=== PATIENT | female | born 1980 | race Caucasian/White ===

== ENCOUNTER 2019-06-21 11:53 | Inpatient (IN) ==
[2019-06-21] MEDS ORDERED: *HR* OxyCODONE/APAP 5/325 TABLET PO ONE (12:20)
[2019-06-21] MEDS ORDERED: Ondansetron ODT 4 MG TAB.RAPDIS SL ONE (12:20)
[2019-06-21] MEDS ORDERED: 0.9 % Sodium Chloride 1,000 ML IVC ONE (12:22)
--- NOTE | 2019-06-21 12:27 | Emergency Department Note ---
Disposition Clinical Impression: Pyelonephritis, Nephrolithiasis Disposition: Admitted As Inpatient Condition: Good Time of Disposition: 15:30 General Adult HPI - General Chief complaint: ED Abdominal Pain Stated complaint: Kidney stones right side Time Seen by Provider: 06/21/19 12:03 Source: patient Mode of arrival: private vehicle Limitations: no limitations Nursing Notes Reviewed: Yes Vital Signs Reviewed: Yes - History of Present Illness HPI Narrative: 39-year-old female with a past medical history of thyroid disorder for which she takes Synthroid, and a one-month history of urinary frequency and dysuria intermittently, and then had some sudden onset right-sided flank pain that started at 10:30 today. Patient also reports severe nausea and vomiting since that started. Patient reports she has history of kidney stones and has never required operative management of these kidney stones. She has always been able to pass her stones on her own. She does not know if she has any hematuria. Pain Scale: 10 - Related Data Home Medications Medication Instructions Recorded Confirmed Levothyroxine [Synthroid] 150 mcg PO 0630 12/05/15 06/21/19 Fluticasone Propionate Nasal 2 spray NS AD 12/14/15 06/21/19 [Flonase] Allopurinol [Zyloprim 100 MG] 100 mg PO DAILY 06/21/19 06/21/19 Montelukast [Singulair] 10 mg PO HS 06/21/19 06/21/19 Sertraline [Zoloft] 25 mg PO DAILY 06/21/19 06/21/19 Allergies Allergy/AdvReac Type Severity Reaction Status Date / Time cephalexin [From Keflex] Allergy See Verified 02/14/18 12:36 Comments Sulfa (Sulfonamide Allergy Hives Verified 02/14/18 12:36 Antibiotics) Review of Systems: In addition to that documented in the HPI above, the additional ROS was obtained: Constitutional: Denies fevers or chills Eyes: Denies vision changes ENMT: Denies sore throat CV: Denies chest pain Resp: Denies SOB GI: Reports nausea, vomiting, suprapubic abdominal pain : Reports dysuria, urinary frequency MSK: Denies recent trauma Skin: Denies new rashes Neuro: Denies new numbness or tingling or weakness Endocrine: Denies unexpected weight loss Heme: Denies bleeding disorders Past Medical History - Past Medical History Medical history: Reports: DVT, hyperlipidemia, kidney stones, migraine, pulmonary embolus, other Surgical history: Reports: (x2), cholecystectomy, herniorrhaphy (x2), other (uterine ablation, tubal ligation, left carpal tunnel release, bronchoscopy, sinus surgery, open ventral hernia repair) Psychiatric history: Reports: anxiety INFORMATION SYSTEMS SECURITY DEVELOPER history: Reports: no INFORMATION SYSTEMS SECURITY DEVELOPER history, other - Social History Smoking Status: Former smoker Smokeless Tobacco Status: No Alcohol use: Reports: none Drug use: Reports: none Physical Exam General: A&O x 3. No acute distress. Appears very uncomfortable. Well developed, well nourished. Head: atraumatic, normocephalic. ENT: No conjunctival injection, no scleral icterus. PERRLA. EOMI. Oropharynx non- erythematous. mucous membranes moist. Neuro: No focal deficits, no speech deficit, no facial droop, mentating well. BUE/BLE Str 5/5. Pulm: Lungs CTAB A/P. No wheezes, rales, ronchi. Cardio: RRR no m/r/g. Chest not tender to palpation. Abd: Soft, non-distended. Normoactive bowel sounds. Tender to palpation in suprapubic area. Voluntary guarding. Non rigid. Back: Right CVA tenderness Extremities: Radial pulses 2+ leti, dorsalis pedis/posterior tibialis 2+ leti. No LE edema. No cyanosis, clubbing. Skin: warm, dry, intact. No rashes. Psych: Appropriate mood and affect. Answers questions appropriately. Cooperative with exam. - General Limitations: no limitations Course Vital Signs Temperature 97.5 F L 06/21/19 11:58 Pulse Rate 74 06/21/19 11:58 Respiratory Rate 18 06/21/19 11:58 Blood Pressure 157/92 06/21/19 11:58 O2 Sat by Pulse Oximetry 94 06/21/19 11:58 Temperature 97.5 F L 06/21/19 12:11 Pulse Rate 101 06/21/19 15:03 Respiratory Rate 18 06/21/19 15:03 Blood Pressure 124/64 06/21/19 15:03 O2 Sat by Pulse Oximetry 94 06/21/19 15:03 Oxygen Delivery Oxygen Delivery Room Air Medical Decision Making - [facility] Narrative Medical decision making narrative: 39F with hx of previous kidney stones that presents with sx of kidney stone that started at 1030 this am. Sharp pain that starts at right flank, also dysuria and frequency for the last month. Will obtain UA with reflex culture and CT of Abd/Pelvis. UA showed infection and CT showed obstructing 2mm stone in her right UPJ. My attending, Dr. Carmen, spoke with the urologist philosophy and religion instructor Dr. Raines who recommended admission with IV antibiotics. Pt was admitted to the hospitalist, Dr. Felix, who agreed to accept the pt to his service. Results of the workup including any imaging and/or labwork was shared with the patient at bedside. Patient was given an opportunity to ask questions at bedside and all of their concerns were addressed. Patient verbalized understanding and agreement with plan of care. Pt remained stable while in the department. - Medical Records Medical records reviewed: Yes I reviewed the patient's medical records. - Lab Data Lab results reviewed: Yes I reviewed the patient's lab results. Lab Results 06/21/19 06/21/19 Range/Units 12:10 12:10 Urine Color Yellow (Yellow) Urine Clarity Slightly Hazy (Clear) Urine pH 5.0 (5.0-8.0) pH Units Ur Specific Frostproof 1.024 (1.010-1.025) Urine Protein Negative (Neg-Trace) mg/dL Urine Glucose (UA) Normal (Normal) mg/dL Urine Ketones Negative (Negative) mg/dL Urine Blood Small H (Negative) Urine Nitrite Negative (Negative) Urine Bilirubin Negative (Negative) Urine Urobilinogen Normal (Normal) mg/dL Ur Leukocyte Esterase Moderate H (Negative) Urine Microscopic RBC 5-15 H (0-3) per hpf Urine Microscopic WBC TNTC H (0-3) per hpf Ur Squamous Epith Cells Many H (None-Few) per lpf Urine Bacteria Many H (None-Few) per hpf Hyaline Casts None Seen (None-Few) per lpf Ur Culture Indicated? YES A (NO) Urine Test Negative (Negative) - Radiology Data Radiology results reviewed: Yes I reviewed the patient's radiology results. Abdomen/Pelvis CT 06/21/19 12:21 IMPRESSION: 1. Obstructive right ureterovesical junction calculus measures 2 mm. [id number] upstream hydroureteronephrosis. 2. Colonic diverticulosis without acute inflammatory changes. 3. Normal appendix. D/ / 06/21/2019 13:15:54 Erlinda Blas MD / kj Interpreting Provider: Erlinda Blas MD Attestation Statement - Attestation Attestation: I, Roderick Carmen, examined this patient and my medical decision-making was reviewed with the MAIN LINE STATION ENGINEER/PA/Advanced Practice Nurse/Resident Physician. I agree with the documented findings, disposition and treatment plan as described except to the extent set forth below. 39-year-old female presents emergency Department with concerns of flank pain. Patient reports she has had right flank pain over the past few weeks associated with dysuria however she thought it would just improve without intervention. She started coming much more sick this morning and now has an acute worsening of her symptoms. Patient is unable to sit still emergency department, she has right CVA tenderness on exam. Urinalysis shows urinary tract infection. CT of the abdomen and pelvis shows an obstructing right ureterolithiasis. Patient was updated regarding CT and laboratory results. She will be started on antibiotics and admitted to the hospitalist for further care and evaluation. We spoke with the urologist regarding the patient's infection in conjunction with stone who agreed to see her in the morning.
[2019-06-21 12:44] LABS: Bilirubin,Urine Negative (Negative); Blood,Urine Small (Negative); Color,Urine Yellow (Yellow); Glucose,Urine (UA) Normal (Normal); Ketones,Urine Negative (Negative); Leukocyte Esterase,Urine Moderate (Negative); Nitrite,Urine Negative (Negative); Protein,Urine Negative (Neg-Trace); Specific Gravity,Urine 1.024 (1.010-1.025); Urobilinogen,Urine Normal (Normal)
[2019-06-21 12:46] LABS: Bacteria,Urine Many per hpf (None-Few); Hyaline Casts,Urine None Seen per lpf (None-Few); Squamous Epithelial Cell,Urine Many per lpf (None-Few); WBC,Urine TNTC per hpf (0-3)
[2019-06-21 12:47] LABS: Clarity,Urine Slightly Hazy (Clear)
[2019-06-21] MEDS ORDERED: cefTRIAXone 1,000 MG in Water for inj. (sterile) 10 ML IVP ONE (13:02)
[2019-06-21] MEDS ORDERED: *HR* FentaNYL (PF) 100 MCG/2 ML VIAL IVP ONE ×2 (13:14→14:23)
[2019-06-21] MEDS ORDERED: *HR* Promethazine 25 MG/ML VIAL IVP ONE (14:23)
[2019-06-21] MEDS ORDERED: *HR* OxyCODONE Immed Rel 5 MG TABLET PO PRN (15:07)
[2019-06-21] MEDS ORDERED: Acetaminophen 325 MG TABLET PO PRN (15:07)
[2019-06-21] MEDS ORDERED: *HR* Promethazine 25 MG/ML VIAL IVP PRN (15:07)
[2019-06-21] MEDS ORDERED: Mag Hydrox/Al Hydrox/Simeth 30 ML UDC PO PRN (15:07)
[2019-06-21] MEDS ORDERED: Naloxone 0.4 MG/ML INJ IVP PRN ×2 (15:07→15:10)
[2019-06-21] MEDS ORDERED: *HR* HYDROcodone/Acet 5/325 mg TABLET PO PRN (15:07)
[2019-06-21] MEDS ORDERED: MOM Conc 10 ML UD.LIQ PO PRN (15:07)
[2019-06-21] MEDS ORDERED: traMADol 50 MG TABLET PO PRN (15:07)
[2019-06-21] MEDS ORDERED: *HR* Belladonna Alkaloids/Opium 30 MG RECTAL SUPPOSITORY RC PRN (15:10)
[2019-06-21] MEDS ORDERED: Hyoscyamine SL 0.125 MG TAB.SUBL SL PRN (15:10)
[2019-06-21] MEDS ORDERED: Fluticasone Propionate Nasal 50 MCG/SPRAY BOTTLE NS SCH (15:15)
--- NOTE | 2019-06-21 15:18 | Internal Med History&Physical ---
Date of Encounter: 06/21/19 Time of Encounter: 14:30 Internal Medicine - H&P: HPI Chief complaint: back pain Admitted From: Emergency Dept Plans for Post Hospital Care: Home History of present illness: Ms. Cardenas is a 39 year old female with hx of PE in 2016 presented to ED with back pain. She was evaluated and found to have obstructive uropathy and subsequently placed in observation. Ms. Cardenas stated that she has had about a month of dysuria and urinary frequency. Denies fever or chills. No CP or SOB. This AM about 1030 developed sudden R side flank pain. She had associated N/V which has persisted though now she has mostly dry heaves. She has had previous kidney stones but never has needed intervention. At the present time she is very uncomfortable. She is unable to find a comfortable position and is having urinary dribbling. CT scan has shown obstructive R UVJ calculus measuring 2mm with mild-mod upstream hydroureteronephrosis. UA consistent with UTI. Past Med Surg Social Fam HX - Past Medical History Medical history: DVT, hyperlipidemia, kidney stones, migraine, pulmonary embolus, other Psychiatric history: anxiety - Past Surgical History Surgical History: (x2), cholecystectomy, herniorrhaphy (x2), other (uterine ablation, tubal ligation, left carpal tunnel release, bronchoscopy, sinus surgery, open ventral hernia repair) Additional surgical history: ventral hernia repair - Social History Smoking Status: Former smoker Smokeless Tobacco Status: No Alcohol use: none Drug use: none - Additional Family History Additional family history: Pt denies significant family history of cardiac disease, DM or HTN. Internal Medicine - H&P: Meds Levothyroxine [Synthroid] 150 mcg PO 0630 12/05/15 [History] Montelukast Sodium [Singulair] 4 mg PO HS 12/05/15 [History] Fluticasone Propionate Nasal [Flonase] 2 spray NS AD 12/14/15 [History] Zoloft 25 mg PO DAILY 06/21/19 [History] Allergy/AdvReac Type Severity Reaction Status Date / Time cephalexin [From Keflex] Allergy See Verified 02/14/18 12:36 Comments Sulfa (Sulfonamide Allergy Hives Verified 02/14/18 12:36 Antibiotics) All Systems PM: A 10-system review of systems was performed and is negative for pertinent findings except as documented above in the HPI. - Constitutional Constitutional: fatigue, malaise - EENT Eyes: no blurry vision, no loss of vision Ears: no decreased hearing Nose, mouth and throat: no dry mouth, no mouth pain - Cardiovascular Cardiovascular ROS IM: no chest pain, no dyspnea, no dyspnea on exertion - Respiratory Respiratory: no cough, no hemoptysis, no dyspnea on exertion - Gastrointestinal Gastrointestinal: abdominal pain, nausea, no diarrhea - Genitourinary Genitourinary: difficulty urinating, difficulty voiding, dysuria, flank pain, urinary frequency, urinary hesitancy, urinary urgency - Musculoskeletal Musculoskeletal ROS IM: no arthralgias, no joint swelling - Integumentary Integumentary IM: no erythema, no rash - Neurological Neurological ROS: no convulsions, no numbness - Endocrine Endocrine IM: no cold intolerance - Hematologic/Lymphatic Hematologic/Lymphatic: no easy bleeding - Constitutional Vitals: Temp Pulse Resp BP Pulse Ox 97.5 F L 101 18 124/64 94 06/21/19 12:11 06/21/19 15:03 06/21/19 15:03 06/21/19 15:03 06/21/19 15:03 General appearance: Present: A&O X 3, severe distress Exam: See below - Head Head exam: Present: atraumatic, normocephalic - Eye Eye exam: Present: EOMI, conjuntiva pink - ENT ENT exam: Present: mucous membranes dry - Neck Neck exam general surgery: Present: normal inspection, supple. Absent: nuchal rigidity - Respiratory Respiratory exam: Present: CTAB. Absent: rales, rhonchi, wheezes - Cardiovascular Cardiovascular exam: Present: RRR, tachycardia - GI/Abdominal GI/Abdominal exam: Present: soft, tenderness (flank R) - Extremities Exam Extremities exam: Present: warm. Absent: tenderness - Neurological Exam Neurological exam: Present: alert, oriented X3 - Skin Skin exam: Present: dry, warm. Absent: rash Internal Med - H&P Results - Labs Labs: Urine 06/21/19 Range/Units 12:10 Urine Color Yellow (Yellow) Urine Clarity Slightly Hazy (Clear) Urine pH 5.0 (5.0-8.0) pH Units Ur Specific Maxwell 1.024 (1.010-1.025) Urine Protein Negative (Neg-Trace) mg/dL Urine Glucose (UA) Normal (Normal) mg/dL - Impressions ITS Impressions Abdomen/Pelvis CT 06/21/19 12:21 IMPRESSION: 1. Obstructive right ureterovesical junction calculus measures 2 mm. [id number] upstream hydroureteronephrosis. 2. Colonic diverticulosis without acute inflammatory changes. 3. Normal appendix. D/ / 06/21/2019 13:15:54 Erlinda Blas MD / kj Interpreting Provider: Erlinda Blas MD - Assessment and Plan (1) Urolithiasis Current Visit: Yes Status: Acute Assessment and plan: Pt with stones at R UVJ. Presented with flank pain Place in observation. IV fluids and pain control. Urology consult Qualifiers: Urinary calculus location: ureter Qualified Code(s): N20.1 - Calculus of ureter (2) Acute unilateral obstructive uropathy Current Visit: Yes Status: Acute Assessment and plan: Pt presented with acute R flank pain and found to have stone at UVJ and obstruction. Observation. Pain control. IV fluids. Urology consult. NPO midnight. (3) UTI (urinary tract infection) Current Visit: Yes Status: Acute Assessment and plan: Pt presents with acute obstructive uropathy with symptoms of UTI. Urine with pyuria and hematuria as well as bacteria. IV Rocephin given. Qualifiers: Urinary tract infection type: acute cystitis Hematuria presence: with hematuria Qualified Code(s): N30.01 - Acute cystitis with hematuria (4) Hypothyroidism Current Visit: No Status: Chronic Assessment and plan: Continue home thyroid replacement. Qualifiers: Hypothyroidism type: acquired Qualified Code(s): E03.9 - Hypothyroidism, unspecified (5) BASIL on CPAP Current Visit: No Status: Chronic Assessment and plan: Respiratory consult (6) Morbid obesity with BMI of 50.0-59.9, adult Current Visit: Yes Status: Chronic Assessment and plan: Chronic issue (7) Seasonal allergies Current Visit: No Status: Chronic Assessment and plan: Continue home meds. Qualifiers: Allergic rhinitis trigger: unspecified Qualified Code(s): J30.2 - Other seasonal allergic rhinitis - Time Spent With Patient Total time spent is greater than 50% in coordination of care (as documented) at patient's floor/unit and/or counseling patient:
--- NOTE | 2019-06-21 19:24 | Urology - Consult Note ---
Date of Encounter: 06/21/19 Time of Encounter: 19:22 - Assessment and Plan (1) Right ureteral stone Current Visit: Yes Status: Acute Assessment and plan: We will plan on conservative management with medical motion therapy today. If patient fails to pass her stone will take the patient to the operative room tomorrow for right ureteroscopic stone extraction. (2) Acute cystitis without hematuria Current Visit: Yes Status: Acute Assessment and plan: Continue with broad-spectrum antimicrobial coverage until cultures return. Patient currently on Rocephin. (3) Nausea without vomiting Current Visit: Yes Status: Acute Assessment and plan: Continue current medication. Appears controlled at this time. (4) Hydronephrosis, right Current Visit: Yes Status: Acute Assessment and plan: Mild to moderate with obstruction from right ureteral stone. Expectation of improvement with either spontaneous passage of stone or removal tomorrow. Urology CN:HPI Consult date: 06/21/19 Reason for consult Urology: Hydronephrosis Requesting physician: Wili Amezquita History of present illness: Olivia is a 39-year-old female with a past medical history significant for kidney stones. Patient states that she has passed multiple stones in the past but has never required any intervention. Patient presented to the emergency department today with severe right-sided flank pain. Subjective fevers at home. Positive nausea without vomiting. Urinalysis concerning for possible infection but negative nitrites. Patient CT scan revealed a 2 mm right UVJ stone with mild to moderate right proximal hydronephrosis.. Patient states her pain is currently a 8 out of 10 sharp in nature located in her right flank with radiation to her right groin. Past Med Surg Social Fam HX - Past Medical History Medical history: DVT, hyperlipidemia, kidney stones, migraine, pulmonary embolus, other Psychiatric history: anxiety - Past Surgical History Surgical History: (x2), cholecystectomy, herniorrhaphy (x2), other (uterine ablation, tubal ligation, left carpal tunnel release, bronchoscopy, sinus surgery, open ventral hernia repair) Additional surgical history: ventral hernia repair - Social History Smoking Status: Former smoker Smokeless Tobacco Status: No Alcohol use: none Drug use: none - Family History Mother Name: Patient denies any history of kidney stones in her family Medications and Allergies Levothyroxine [Synthroid] 150 mcg PO 0630 12/05/15 [History] Fluticasone Propionate Nasal [Flonase] 2 spray NS AD 12/14/15 [History] Allopurinol [Zyloprim 100 MG] 100 mg PO DAILY 06/21/19 [History] Montelukast [Singulair] 10 mg PO HS 06/21/19 [History] Sertraline [Zoloft] 25 mg PO DAILY 06/21/19 [History] Allergy/AdvReac Type Severity Reaction Status Date / Time cephalexin [From Keflex] Allergy See Verified 02/14/18 12:36 Comments Sulfa (Sulfonamide Allergy Hives Verified 02/14/18 12:36 Antibiotics) Review of Systems - Constitutional no chills - EENT Nose, mouth and throat: no dizziness - Cardiovascular no chest pain, no dyspnea - Respiratory no cough, no dyspnea - Gastrointestinal nausea, no abdominal pain, no vomiting - Genitourinary Genitourinary: dysuria - Musculoskeletal back pain - Integumentary no rash, no swelling - Neurological no sensory deficit - Psychiatric no depression - Hematologic/Lymphatic no lymphadenopathy - Allergic/Immunologic no wheezing Exam Initial Vital Signs Temp Pulse Resp BP Pulse Ox 97.5 F L 74 18 157/92 94 06/21/19 11:58 06/21/19 11:58 06/21/19 11:58 06/21/19 11:58 06/21/19 11:58 General/Neuological: alert and oriented x 3 Eyes: normal pupils, non-icteric Neck: no lymphadenopathy noted, supple to touch Cardiovascular: RRR, no murmurs Respiratory: normal respiratory effort, clear bilaterally ABD: soft, nontender, no masses palpated, good bowel sounds, severely morbidly obese Back: no pain on percussion bilaterally Skin: no rashes noted Musculoskeletal: normal gait, FROMx4 Urology Results - Labs Abnormal lab results Urine Blood Small (Negative) H 06/21/19 12:10 Ur Leukocyte Esterase Moderate (Negative) H 06/21/19 12:10 Urine Microscopic RBC 5-15 per hpf (0-3) H 06/21/19 12:10 Urine Microscopic WBC TNTC per hpf (0-3) H 06/21/19 12:10 Ur Squamous Epith Cells Many per lpf (None-Few) H 06/21/19 12:10 Urine Bacteria Many per hpf (None-Few) H 06/21/19 12:10 Ur Culture Indicated? YES (NO) A 06/21/19 12:10 All other labs normal. - Imaging CT scan - abdomen: image reviewed CT scan - pelvis: image reviewed Consult Discharge Plan - Plan Referrals: Ector Vera CNP [Primary Care Provider] -
[2019-06-21] MEDS: Ketorolac 30 MG/ML VIAL IVP SCH (20:00)
[2019-06-21] MEDS: Ringers Solution, Lactated 1,000 ML IVC SCH (21:56)
[2019-06-22] MEDS: Ketorolac 30 MG/ML VIAL IVP SCH ×4 (00:18→17:35)
[2019-06-22] MEDS: Ringers Solution, Lactated 1,000 ML IVC SCH (04:29)
[2019-06-22] MEDS ORDERED: Famotidine 20 MG/2 ML VIAL IVP ONE (07:42)
--- NOTE | 2019-06-22 08:04 | Internal Med Progress Note ---
<Modesto Alegre - Last Filed: 06/22/19 12:44> Hospitalist Progress Note - Encounter Date of Encounter: 06/22/19 Time of Encounter: 08:03 - Subjective Interval History: Pt is comfortable, pain well controlled. Urinated once post procedure w/o evidence of blood. Still has some dysuria, although she reports that it has improved considerably since stent placement. Denies fever, chills, n/v, cp, sob. - Exam Vitals: Temp Pulse Resp BP Pulse Ox 98.9 F 87 16 120/74 94 06/22/19 04:21 06/22/19 04:21 06/22/19 04:21 06/22/19 04:21 06/22/19 04:21 Exam: GA: A&O X 3, no acute pain Head: atraumatic, normocephalic Eye: EOMI, conjuntiva normal ENT: mucous membranes moist Neck: normal inspection, no thyromegaly Respiratory: CTAB. No rales, rhonchi, wheezes CV: RRR, S1/S2 WNL, no murmurs, rubs or gallops GI: Soft, BS normal, mild suprapubic tenderness Ext: warm. No edema, pulses symmetric bilaterally Neuro: CN grossly intact, no focal deficits Skin: dry, warm. No rash - Assessment and Plan (1) Acute unilateral obstructive uropathy Current Visit: Yes Status: Acute Assessment and Plan: Pt s/p ureteroscopic stone extraction w/right stent placement for obstructive uropathy w/o complication. Following with urology. - Continue to monitor for dysuria, hematuria, fever. - Conitnue Rocephin IV. - [place], toradol for pain. - Phenergan for nausea. (2) Urolithiasis Current Visit: Yes Status: Acute Assessment and Plan: S/P stone extraction with stent placement. Pain and dysuria improved. - Continue toradol, norco for pain. - Phenergan for nausea. - Urology following. (3) Hydronephrosis, right Current Visit: Yes Status: Acute Assessment and Plan: No surgical complications per urology. Pain improved. - Monitor for progressive pain, signs of infection. - Continue pain management. - Phergan for nausea. - Uro following. (4) Acute cystitis without hematuria Current Visit: Yes Status: Acute Assessment and Plan: Dysuria improved s/p ureteral stent w/stone extraction. Mild burning w/urination today. Anticipate d/c tomorrow. - Continue IV rocephin. (5) Morbid obesity with BMI of 50.0-59.9, adult Current Visit: Yes Status: Chronic Assessment and Plan: Chronic obesity, pt to f/u with pcp at discharge. (6) BASIL on CPAP Current Visit: No Status: Chronic Assessment and Plan: RT consulted. Possible CPAP tonight. (7) Seasonal allergies Current Visit: No Status: Chronic Assessment and Plan: Continue singulair as prescribed. - Time Spent with Patient Total time spent is greater than 50% in coordination of care (as documented) at patient's floor/unit and/or counseling patient: Plan of Care Discussed with: patient Internal Medicine: Result - Labs CBC & Chem 7: 06/22/19 04:00 06/22/19 04:00 Labs: Urine 06/21/19 Range/Units 12:10 Urine Color Yellow (Yellow) Urine Clarity Slightly Hazy (Clear) Urine pH 5.0 (5.0-8.0) pH Units Ur Specific [place] 1.024 (1.010-1.025) Urine Protein Negative (Neg-Trace) mg/dL Urine Glucose (UA) Normal (Normal) mg/dL - Impressions Impressions Abdomen/Pelvis CT 06/21/19 12:21 IMPRESSION: 1. Obstructive right ureterovesical junction calculus measures 2 mm. [id number] upstream hydroureteronephrosis. 2. Colonic diverticulosis without acute inflammatory changes. 3. Normal appendix. D/ / 06/21/2019 13:15:54 Erlinda Blas MD / kj Interpreting Provider: Erlinda Blas MD Consult Discharge Plan - Plan Referrals: Ector Vera, [employer] MOLD DESIGNER [Primary Care Provider] - <Wili Amezquita - Last Filed: 06/22/19 15:42> Hospitalist Progress Note - Encounter Date of Encounter: 06/22/19 - Exam Vitals: Temp Pulse Resp BP Pulse Ox 98.2 F 81 17 116/70 95 06/22/19 14:04 06/22/19 14:04 06/22/19 14:04 06/22/19 14:04 06/22/19 11:26 - Assessment and Plan (1) Urolithiasis Current Visit: Yes Status: Acute (2) Acute unilateral obstructive uropathy Current Visit: Yes Status: Acute (3) UTI (urinary tract infection) Current Visit: Yes Status: Acute (4) Hypothyroidism Current Visit: No Status: Chronic (5) BASIL on CPAP Current Visit: No Status: Chronic (6) Morbid obesity with BMI of 50.0-59.9, adult Current Visit: Yes Status: Chronic (7) Seasonal allergies Current Visit: No Status: Chronic - Time Spent with Patient Total time spent is greater than 50% in coordination of care (as documented) at patient's floor/unit and/or counseling patient: Internal Medicine: Result - Labs CBC & Chem 7: 06/22/19 04:00 06/22/19 04:00 Labs: Short CBC 06/22/19 Range/Units 04:00 WBC 10.9 (4.3-11.1) K/mcL Hgb 12.4 (11.5-15.4) g/dL Hct 38.6 (35.3-44.9) % Plt Count 241 (140-400) K/mcL BMP 06/22/19 04:00 Sodium 137 Potassium 4.3 Chloride 105 Carbon Dioxide 22 L BUN 19 Creatinine 0.89 Glucose 131 H Calcium 8.8 - Impressions Impressions Retrograde Pyelogram 06/22/19 00:00 IMPRESSION: Intraprocedural fluoroscopic spot images as above. See separate procedure report for more information. D/ / 06/22/2019 10:29:32 Gary Maldonado MD / [facility] Interpreting Provider: Gary Maldonado MD - Attending Attestation I examined this patient and my medical decision-making was reviewed with the Resident Physician on 06/22/19. I agree with the documented findings, disposition and treatment plan as described except to the extent set forth below. Ms Cardenas is currently admitted for obstructive uropathy and UTI. She remains moderate to high risk due to potential for worsening clinical status. Ms Cardenas went to OR this AM and had stent placed. Pain now much improved. No fever or chills. Cx pending. Exam Alert Comfortable now. Mucus membranes dry. NC. EOMI. Not tachycardic. No wheeze Plan: Continue IV abx. Cx pending. Anticipate d/c tomorrow. <Modesto Alegre - Last Filed: 06/22/19 12:44> (2) Urolithiasis Qualifiers: Urinary calculus location: ureter Qualified Code(s): N20.1 - Calculus of ureter (7) Seasonal allergies Qualifiers: Allergic rhinitis trigger: unspecified Qualified Code(s): J30.2 - Other seasonal allergic rhinitis <Wili Amezquita - Last Filed: 06/22/19 15:42> (1) Urolithiasis Qualifiers: Urinary calculus location: ureter Qualified Code(s): N20.1 - Calculus of ureter (3) UTI (urinary tract infection) Qualifiers: Urinary tract infection type: acute cystitis Hematuria presence: with hematuria Qualified Code(s): N30.01 - Acute cystitis with hematuria (4) Hypothyroidism Qualifiers: Hypothyroidism type: acquired Qualified Code(s): E03.9 - Hypothyroidism, unspecified (7) Seasonal allergies Qualifiers: Allergic rhinitis trigger: unspecified Qualified Code(s): J30.2 - Other seasonal allergic rhinitis
--- NOTE | 2019-06-22 08:21 | Anesthesia Evaluation PreOp ---
Date of Encounter: 06/22/19 Time of Encounter: 08:20 - Past History Planned Operation: Rt USE/ Holmium Laser Cardiac History: Hyperlipidemia Pulmonary History: Former smoker FIELD AIDE History: Other (Migraine) Other Medical History: Other (Morbid Obesity Anxiety) Anesthesia History: No Prior Anesthetic Complications : No Test: Negative Alcohol Use: none Drug use: none Medications and Allergies Levothyroxine [Synthroid] 150 mcg PO 0630 12/05/15 [History] Fluticasone Propionate Nasal [Flonase] 2 spray NS AD 12/14/15 [History] Allopurinol [Zyloprim 100 MG] 100 mg PO DAILY 06/21/19 [History] Montelukast [Singulair] 10 mg PO HS 06/21/19 [History] Sertraline [Zoloft] 25 mg PO DAILY 06/21/19 [History] Allergy/AdvReac Type Severity Reaction Status Date / Time cephalexin [From Keflex] Allergy See Verified 02/14/18 12:36 Comments Sulfa (Sulfonamide Allergy Hives Verified 02/14/18 12:36 Antibiotics) - Meds/Allergy Pre-op Review Medications Reviewed: Yes Allergies Reviewed: Yes Beta Blockers on Current Med List: No Anesthesia Results - Labs Laboratory Tests 03/09/17 06/21/19 23:40 12:10 Hgb 13.1 Hct 40.5 Plt Count 276 Urine Test Negative Anesthesia Exam O2 Sat Height 1.68 m Height 1.68 m Weight 174 kg Weight 166.922 kg Weight 166.922 kg O2 Sat by Pulse Oximetry 95 O2 Sat by Pulse Oximetry 94 O2 Sat by Pulse Oximetry 96 O2 Sat by Pulse Oximetry 97 O2 Sat by Pulse Oximetry 97 O2 Sat by Pulse Oximetry 94 O2 Sat by Pulse Oximetry 97 O2 Sat by Pulse Oximetry 97 O2 Sat by Pulse Oximetry 94 O2 Sat by Pulse Oximetry 94 Vital Signs Temp Pulse Resp BP Pulse Ox 97.5 F L 74 18 157/92 94 06/21/19 11:58 06/21/19 11:58 06/21/19 11:58 06/21/19 11:58 06/21/19 11:58 Height: 5'6 Weight: 383 lbs NPO (# of Hours): MN Pain Scale: 0 - HEENT Pupil (Motor): Pupils equal, EOMI Mallampati: III Teeth: Normal Oral Opening: Less than or equal to 3 - FIELD AIDE LOC: Oriented FIELD AIDE Motor: Normal RUE, Normal LUE, Normal RLE, Normal LLE, Normal Face FIELD AIDE Sensory: Normal: RUE, LUE, RLE, LLE, Face - Cardiac Rhythm: Regular Murmur: None JVD: No Carotid Bruit: No - Pulmonary Breath Sounds: bilateral Clear Respiratory Effort: Symmetrical Anesthesia Assess/Plan ASA Score: 3 (MO) Level of consciousness: Cooperative, Oriented Anesthetic Plan: General Autologous Blood: No Monitoring Plan: Standard Monitors Recovery Plan: PACU (Discussed GA, agrees to proceed)
--- NOTE | 2019-06-22 08:34 | Urology Progress Note ---
Date of Encounter: 06/22/19 Time of Encounter: 08:33 - Assessment and Plan (1) Right ureteral stone Current Visit: Yes Status: Acute Assessment and plan: to operating room today for right ureteroscopic stone extraction and right ureteral stent placement. (2) Acute cystitis without hematuria Current Visit: Yes Status: Acute (3) Nausea without vomiting Current Visit: Yes Status: Acute (4) Hydronephrosis, right Current Visit: Yes Status: Acute Progress Note Narrative: Patient seen this morning. Patient still with some discomfort. Objective Initial Vital Signs Temp Pulse Resp BP Pulse Ox 97.5 F L 74 18 157/92 94 06/21/19 11:58 06/21/19 11:58 06/21/19 11:58 06/21/19 11:58 06/21/19 11:58 - General physical appearance Present: well developed, well nourished - Abdomen Present: soft. Absent: tender Consult Discharge Plan - Plan Referrals: Ector Vera, PRINT BUYER [Primary Care Provider] -
[2019-06-22] MEDS ORDERED: *HR* FentaNYL (PF) 100 MCG/2 ML VIAL ONE (08:38)
[2019-06-22] MEDS ORDERED: *HR* Midazolam HCl 2 MG/2 ML VIAL ONE (08:38)
[2019-06-22] MEDS ORDERED: *HR* Propofol 200 MG/20 ML VIAL IVP ONE (08:38)
[2019-06-22] MEDS ORDERED: *HR* Succinylcholine 200 MG/10 ML VIAL IVP ONE (08:39)
[2019-06-22] MEDS ORDERED: Dexamethasone 4 MG/ML VIAL ONE (08:39)
[2019-06-22] MEDS ORDERED: *HR* Rocuronium Bromide 50 MG/5 ML VIAL ONE (08:39)
[2019-06-22] MEDS ORDERED: Lidocaine HCL 4 ML Topical Solution (Laryng-O-Jet Kit Sterile Pak) TP ONE (08:39)
[2019-06-22] MEDS ORDERED: Ondansetron 4 MG/2 ML VIAL ONE (08:39)
[2019-06-22] MEDS ORDERED: Lidocaine -MPF 2% 2 ML VIAL ONE (08:39)
[2019-06-22] MEDS ORDERED: Famotidine 20 MG/2 ML VIAL ONE (08:45)
[2019-06-22] MEDS ORDERED: Acetaminophen IV 1,000 MG/100 ML INFUS..BTL ONE (08:45)
[2019-06-22] MEDS ORDERED: Isovue-300 50 ML VIAL ONE (08:53)
[2019-06-22] MEDS ORDERED: cefTRIAXone 1,000 MG in Water for inj. (sterile) 10 ML IVP SCH (09:00)
[2019-06-22] MEDS ORDERED: Ketorolac 30 MG/ML VIAL ONE (09:34)
--- NOTE | 2019-06-22 09:40 | Operative Note ---
Date of procedure: 06/22/19 Pre-op diagnosis: right distal ureteral stone with fever Post-op diagnosis: other (No stone found) Procedure: Right retrograde pyelogram, right diagnostic ureteroscopy, right 4.8 x 26 cm ureteral stent placement Anesthesia: PADMINIA Surgeon: Demetrius Raines Was there an pastry assistant present: No Estimated blood loss (cc): 0 Specimen: none Condition: stable Disposition: PACU Procedure in Detail: Patient was prepped and draped in normal sterile fashion. Timeout procedure performed. I then inserted the semirigid ureteroscope into the patient's bladder. I was able to cannulate the right ureteral orifice. I then advanced the scope into the distal ureter were encountered some red inflamed tissue but no obvious stone was seen. I then advanced the scope to the mid ureter with no further stones. I then performed retrograde pyelogram which showed significant hydronephrosis but no obvious obstructing stone. I then placed a sensor wire into the right kidney and placed a 4.8 x 26 cm stent. Bladder was drained and procedure was ended. Patient taken to PACU in stable condition.
[2019-06-22] MEDS ORDERED: *HR* OxyCODONE Immed Rel 5 MG TABLET PO PRN ×2 (09:55→10:46)
[2019-06-22] MEDS ORDERED: Hyoscyamine SL 0.125 MG TAB.SUBL SL PRN (10:46)
[2019-06-22] MEDS ORDERED: Mag Hydrox/Al Hydrox/Simeth 30 ML UDC PO PRN (10:46)
[2019-06-22] MEDS ORDERED: traMADol 50 MG TABLET PO PRN (10:46)
[2019-06-22] MEDS ORDERED: *HR* Promethazine 25 MG/ML VIAL IVP PRN (10:46)
[2019-06-22] MEDS ORDERED: Naloxone 0.4 MG/ML INJ IVP PRN (10:46)
[2019-06-22] MEDS ORDERED: Acetaminophen 325 MG TABLET PO PRN (10:46)
[2019-06-22] MEDS ORDERED: *HR* Belladonna Alkaloids/Opium 30 MG RECTAL SUPPOSITORY RC PRN (10:46)
[2019-06-22 12:01] LABS: Hematocrit 38.6 % (35.3-44.9); Hemoglobin 12.4 g/dL (11.5-15.4); Mean Corpuscular HGB Conc 32.1 g/dL (31.6-35.5); Mean Corpuscular Hemoglobin 28.6 pg (28.0-33.3); Mean Corpuscular Volume 88.9 fL (83.0-100.0); Platelet Count 241 K/mcL (140-400); Red Blood Count 4.34 M/mcL (3.82-4.97); Red Cell Distribution Width 14.4 % (11.5-14.5); White Blood Count 10.9 K/mcL (4.3-11.1)
--- NOTE | 2019-06-22 12:03 | Anesthesia Evaluation Post Op ---
Date of Encounter: 06/22/19 Time of Encounter: 12:00 - Vital Signs Vital Signs: Vital Signs/O2 Sat/Glucose, Most Current Temp Pulse Resp BP Pulse Ox 06/22/19 10:26 99.4 F 90 18 129/63 96 06/22/19 10:16 100.1 F H 85 14 109/84 95 06/22/19 10:06 92 18 122/74 97 06/22/19 09:56 93 18 121/66 97 06/22/19 09:46 99.4 F 89 20 129/64 100 06/22/19 08:17 99.8 F H 92 16 97/60 95 - Lungs Lungs: Clear Ascult./Percussion - Airway Airway: Non-obstructed - Cardiovascular Regular Rate - Mental Status Mental Status: Alert & Oriented, Answers Appropriately - Pain Pain Scale: 0 - Nausea Vomiting Nausea Vomiting: Not Present - Hydration Hydration: Ice chips - Discharge PostOp Status: Transfer Patient to floor
[2019-06-22 12:22] LABS: BUN/Creatinine Ratio 21 (6-26); Blood Urea Nitrogen 19 mg/dL (6-20); Calcium 8.8 mg/dL (8.6-10.3); Carbon Dioxide 22 mEq/L (23-29); Chloride 105 mEq/L (98-107); Glucose 131 mg/dL (70-105); Magnesium 1.9 mg/dL (1.6-2.6); Osmolality,Calculated 288 (280-300); Potassium 4.3 mEq/L (3.5-5.1); Sodium 137 mEq/L (136-145); eGFR For African Americans > 60 (> 60); eGFR For Non-African Americans > 60 (> 60)
[2019-06-22] MEDS ORDERED: Chloraseptic Spray 177 ML BOTTLE MM PRN (16:01)
[2019-06-22] MEDS: MOM Conc 10 ML UD.LIQ PO PRN (16:05)
[2019-06-23] MEDS: Ketorolac 30 MG/ML VIAL IVP SCH ×2 (00:04→06:16)
[2019-06-23] MEDS: *HR* HYDROcodone/Acet 5/325 mg TABLET PO PRN ×2 (02:16→12:30)
[2019-06-23] MEDS: MOM Conc 10 ML UD.LIQ PO PRN (04:45)
[2019-06-23 05:09] VITALS: BP 132/83
[2019-06-23 05:10] LABS: Basophils % 0.2 %; Eosinophils % 0.2 %; Hematocrit 38.2 % (35.3-44.9); Hemoglobin 12.2 g/dL (11.5-15.4); Lymphocytes # 0.8 K/mcL (0.6-4.6); Lymphocytes % 8.5 %; Mean Corpuscular HGB Conc 31.9 g/dL (31.6-35.5); Mean Corpuscular Hemoglobin 27.7 pg (28.0-33.3); Mean Corpuscular Volume 86.6 fL (83.0-100.0); Mean Platelet Volume 9.4 fL (9.4-12.4); Monocytes # 0.6 K/mcL (0.0-1.3); Monocytes % 5.6 %; Neutrophils # 8.3 K/mcL (1.6-8.9); Platelet Count 262 K/mcL (140-400); Red Blood Count 4.41 M/mcL (3.82-4.97); Red Cell Distribution Width 14.4 % (11.5-14.5); Segmented Neutrophils % 84.5 %; White Blood Count 9.9 K/mcL (4.3-11.1)
[2019-06-23 05:27] LABS: BUN/Creatinine Ratio 20 (6-26); Blood Urea Nitrogen 20 mg/dL (6-20); Carbon Dioxide 23 mEq/L (23-29); Chloride 105 mEq/L (98-107); Glucose 158 mg/dL (70-105); Osmolality,Calculated 292 (280-300); Potassium 4.2 mEq/L (3.5-5.1); Sodium 138 mEq/L (136-145); eGFR For African Americans > 60 (> 60); eGFR For Non-African Americans > 60 (> 60)
--- NOTE | 2019-06-23 07:50 | Discharge Summary ---
<SisOliModesto M - Last Filed: 06/23/19 12:09> - NOTES TO OUTPATIENT PROVIDER Notes to Outpatient Provider: Patient seen for obstructive uropathy s/p urinary diversion with stent. - Urinary stent to be left in place for 2-3 weeks. Routine f/u with urology. - Pt discharged on Levaquin 750 mg PO daily for 5 days. Pending further urinary cultures. Orders not resulted at time of discharge: Pending orders 06/21/19 12:10 Culture,Urine [RM] Stat Date of Encounter: 06/23/19 Time of Encounter: 07:50 - Discharge Diagnosis (1) Acute unilateral obstructive uropathy Priority: Primary Status: Acute Assessment and Plan: Pt is a 39 F seen for acute flank pain, n/v secondary to urolithiasis. CT demonstrated moderate right sided hydronephrosis. Initial urine cultures revealed e coli sensitive to Rocephin and Levaquin. Urology consulted and pt was treated with ureteral stent and stone extraction. - D/C IV rocephin. - Start 750 mg PO Levaquin. - Toradol for pain. (2) Urolithiasis Priority: Secondary Status: Acute Assessment and Plan: Pt seen for acute urolithiasis s/p urinary diversion with stone extraction. Pain has improved significantly. Plan to maintain stent for 2-3 weeks. Pt to be started on oral levaquin at discharge. - Maintain adequate hydration. - Urology follow up in 2-3 weeks. - Routine PCP f/u. Qualifiers: Urinary calculus location: ureter Qualified Code(s): N20.1 - Calculus of ureter (3) Acute cystitis without hematuria Priority: Secondary Status: Acute Assessment and Plan: Initial cultures revealed e coli sensitive to rocephin and levaquin. Pt was treated with IV rocephin prior to ureteral diversion. She endorses improving dysuria and pain. Plan is to d/c patient on 750 mg oral levaquin. - F/U in 2-3 weeks with urology for possible stent removal. Hospital course: Ms. Cardenas is a 39 year old female with hx of PE, nephrolithiasis who presented to ED with acute flank pain, nausea and vomiting. She reported 1 month history of dysuria and urinary frequency w/o fever or chills. Pain was treated controlled in the ED and CT eval demonstrated right sided urolithiasis with obstructive uropathy. She was admitted to the hospital. Urology consulted expectant management for passage of stone. Patient was unable to pass stone so it was recommended to proceed with urinary diversion w/stone extraction per urology. U/A was consistent with UTI and urine culture revealed e. coli with amador- sensitivity. Pt was started on IV rocephin and improved considerably following surgical procedure. Pain managed appropriately and pt reported decreased dysuria, burning urination and denied hematuria. Discharge discussed with: patient, nurse - Time Spent with Patient Total time spent providing and/or coordinating discharge services: - Discharge Medications Prescriptions: New levoFLOXacin [Levaquin] 500 mg PO DAILY 7 Days #7 tablet Ketorolac [Toradol] 10 mg PO Q6HR #30 tablet Continued Levothyroxine [Synthroid] 150 mcg PO 0630 Fluticasone Propionate Nasal [Flonase] 2 spray NS AD Montelukast [Singulair] 10 mg PO HS Allopurinol [Zyloprim 100 MG] 100 mg PO DAILY Sertraline [Zoloft] 25 mg PO DAILY Home Medications: Levothyroxine [Synthroid] 150 mcg PO 0630 12/05/15 [History] Fluticasone Propionate Nasal [Flonase] 2 spray NS AD 12/14/15 [History] Allopurinol [Zyloprim 100 MG] 100 mg PO DAILY 06/21/19 [History] Montelukast [Singulair] 10 mg PO HS 06/21/19 [History] Sertraline [Zoloft] 25 mg PO DAILY 06/21/19 [History] Ketorolac [Toradol] 10 mg PO Q6HR #30 tablet 06/23/19 [Rx] levoFLOXacin [Levaquin] 500 mg PO DAILY 7 Days #7 tablet 06/23/19 [Rx] Allergies/Adverse Reactions: Allergy/AdvReac Type Severity Reaction Status Date / Time cephalexin [From Keflex] Allergy See Verified 02/14/18 12:36 Comments Sulfa (Sulfonamide Allergy Hives Verified 02/14/18 12:36 Antibiotics) Date of admission: 06/22/19 15:43 Primary care physician: Ector Vera CNP Consults: 06/21/19 13:52 Consult to Urology [CONS] Stat Consulting Provider: Urology Lesa Reason for Consult: Infected stone Time Notified: 13:53 Call Completed: Yes 06/21/19 16:03 Consult to Respiratory Therapy [CONS] Stat Reason for Consult: pt uses CPAP at home Call Completed: No Discharging clinician: Modesto Alegre Anticipated date of discharge: 06/23/19 - Constitutional Vitals: Temp Pulse Resp BP Pulse Ox 97.8 F 63 16 132/83 96 06/23/19 05:07 06/23/19 05:07 06/23/19 05:07 06/23/19 05:07 06/23/19 05:07 General appearance: Present: A&O X 3, no acute distress Exam: see below - Head Head exam: Present: atraumatic, normocephalic - Eye Eye exam: Present: EOMI, PERRL, conjuntiva pink - ENT ENT exam: Present: mucous membranes moist, normal oropharynx - Neck Neck exam general surgery: Present: supple. Absent: lymphadenopathy, tenderness - Respiratory Respiratory exam: Present: CTAB. Absent: rales, rhonchi, wheezes - Cardiovascular Cardiovascular exam: Present: RRR, +S1, +S2. Absent: diastolic murmur, JVD, systolic murmur - GI/Abdominal GI/Abdominal exam: Present: normal bowel sounds, soft, tenderness (mild lower abdominal tenderness, much improved). Absent: guarding, rebound, rigid - Extremities Exam Extremities exam: Present: normal capillary refill. Absent: cyanotic, pedal edema, tenderness - Incison Incision: Present: clean and dry - Neurological Exam Neurological exam: Present: CN II-XII intact, no focal deficits - Skin Skin exam: Present: intact, normal color. Absent: rash - Patient Status Disposition: Home, Self-Care Condition: Good Functional capacity at discharge: independent ambulation Overall status at discharge: patient is back to baseline - Discharge Instructions Instructions: Urinary Tract Infection in Women (DC) Follow Up With: Demetrius Raines MD [Partnered Physician] - (Web request sent. Please call patient ) Ector Vera CNP [Primary Care Provider] - Additional Instructions: Return to ED if you develop symptoms of progressive fever, chills, nausea, vomiting or acute abdominal pain. Follow-up with PCP. - Diet and Activity Activity: increase activity as tolerated Diet: advance to your usual diet <Wili Amezquita - Last Filed: 06/23/19 17:25> Date of Encounter: 06/23/19 - Discharge Diagnosis (1) Urolithiasis Status: Acute Qualifiers: Urinary calculus location: ureter Qualified Code(s): N20.1 - Calculus of ureter (2) Acute unilateral obstructive uropathy Status: Acute (3) UTI (urinary tract infection) Status: Acute Qualifiers: Urinary tract infection type: acute cystitis Hematuria presence: with hematuria Qualified Code(s): N30.01 - Acute cystitis with hematuria (4) Hypothyroidism Status: Chronic Qualifiers: Hypothyroidism type: acquired Qualified Code(s): E03.9 - Hypothyroidism, unspecified (5) BASIL on CPAP Status: Chronic (6) Morbid obesity with BMI of 50.0-59.9, adult Status: Chronic (7) Seasonal allergies Status: Chronic Qualifiers: Allergic rhinitis trigger: unspecified Qualified Code(s): J30.2 - Other seasonal allergic rhinitis Hospital course: Ms. Cardenas is a 39 year old female - Time Spent with Patient Total time spent providing and/or coordinating discharge services: Date of admission: 06/22/19 15:43 Primary care physician: Ector Vera CNP Consults: 06/21/19 13:52 Consult to Urology [CONS] Stat Consulting Provider: Mavericky Lesa Reason for Consult: Infected stone Time Notified: 13:53 Call Completed: Yes 06/21/19 16:03 Consult to Respiratory Therapy [CONS] Stat Reason for Consult: pt uses CPAP at home Call Completed: No - Constitutional Vitals: Temp Pulse Resp BP Pulse Ox 97.8 F 63 16 132/83 96 06/23/19 05:07 06/23/19 05:07 06/23/19 05:07 06/23/19 05:07 06/23/19 05:07 - Attending Attestation I examined this patient and my medical decision-making was reviewed with the Resident Physician on 06/23/19. I agree with the documented findings, disposition and treatment plan as described except to the extent set forth below. Ms Cardenas has been hospitalized for urinary obstruction due to stone and UTI. She had stent placed with improvement. Urine grew E coli sensitive to Levaquin. Today she is afebrile and ready for discharge home. Exam Alert. Comfortable Not tachycardic No wheeze Plan D/C home today Complete course of abx Follow up with PCP and urology. D/C time 32min
--- NOTE | 2019-06-23 07:50 | Urology Progress Note ---
Date of Encounter: 06/23/19 Time of Encounter: 07:48 - Assessment and Plan (1) Right ureteral stone Current Visit: Yes Status: Acute Assessment and plan: Patient spontaneously passed her stone and is now status post right ureteral stent placement. Patient will keep her stent in place for 2-3 weeks. We will arrange for removal in our office. (2) Acute cystitis without hematuria Current Visit: Yes Status: Acute Assessment and plan: From urology standpoint patient clinically improved. Could consider discharge today with oral Levaquin. I did advise the patient that if she goes home there is some risk that the final culture has not returned and that her bacteria could be resistant to which ever oral antibiotic is chosen. (3) Nausea without vomiting Current Visit: Yes Status: Acute (4) Hydronephrosis, right Current Visit: Yes Status: Acute Progress Note Narrative: Patient seen this morning. Status post right ureteral stent placement. Patient without fevers overnight. Culture is positive for gram-negative rods. Objective Initial Vital Signs Temp Pulse Resp BP Pulse Ox 97.5 F L 74 18 157/92 94 06/21/19 11:58 06/21/19 11:58 06/21/19 11:58 06/21/19 11:58 06/21/19 11:58 - General physical appearance Present: well developed, well nourished - Respiratory Present: normal expansion, normal respiratory effort - Abdomen Present: soft. Absent: tender - Labs 06/23/19 04:51 06/23/19 04:51 Diabetes panel 06/22/19 06/23/19 Range/Units 04:00 04:51 Sodium 137 138 (136-145) mEq/L Potassium 4.3 4.2 (3.5-5.1) mEq/L Chloride 105 105 (98-107) mEq/L Carbon Dioxide 22 L 23 (23-29) mEq/L BUN 19 20 (6-20) mg/dL Creatinine 0.89 0.98 (0.60-1.20) mg/dL Glucose 131 H 158 H (70-105) mg/dL Calcium 8.8 9.0 (8.6-10.3) mg/dL Calcium panel 06/22/19 06/23/19 Range/Units 04:00 04:51 Calcium 8.8 9.0 (8.6-10.3) mg/dL Pituitary panel 06/22/19 06/23/19 Range/Units 04:00 04:51 Sodium 137 138 (136-145) mEq/L Potassium 4.3 4.2 (3.5-5.1) mEq/L Chloride 105 105 (98-107) mEq/L Carbon Dioxide 22 L 23 (23-29) mEq/L BUN 19 20 (6-20) mg/dL Creatinine 0.89 0.98 (0.60-1.20) mg/dL Glucose 131 H 158 H (70-105) mg/dL Calcium 8.8 9.0 (8.6-10.3) mg/dL Adrenal panel 06/22/19 06/23/19 Range/Units 04:00 04:51 Sodium 137 138 (136-145) mEq/L Potassium 4.3 4.2 (3.5-5.1) mEq/L Chloride 105 105 (98-107) mEq/L Carbon Dioxide 22 L 23 (23-29) mEq/L BUN 19 20 (6-20) mg/dL Creatinine 0.89 0.98 (0.60-1.20) mg/dL Glucose 131 H 158 H (70-105) mg/dL Calcium 8.8 9.0 (8.6-10.3) mg/dL Consult Discharge Plan - Plan Referrals: Ector Vera, CHRISTINA [Primary Care Provider] -
[2019-06-23] MEDS ORDERED: Fluticasone Propionate Nasal 50 MCG/SPRAY BOTTLE NS SCH (09:00)
[2019-06-23] MEDS ORDERED: cefTRIAXone 1,000 MG in Water for inj. (sterile) 10 ML IVP SCH (09:00)
== END 2019-06-23 12:43 | disposition home or self-care (01) | DRG 660 ==
LOC: EMEROOARM 11:53 → 3ANU 11:53 → SUATTDRO 19:18 → 3ANU 20:45
PROVIDERS: ADMIT Internal Medicine; ATTEND Internal Medicine

== ENCOUNTER 2019-07-12 14:14 | Observation (INO) ==
[2019-07-12] MEDS ORDERED: Ondansetron 4 MG/2 ML VIAL IVP ONE (15:16)
[2019-07-12] MEDS ORDERED: *HR* HYDROmorphone (PF) 1 MG/ML SYRINGE IVP ONE (15:16)
[2019-07-12] MEDS ORDERED: Isovue-370 500 ML BOTTLE IVP ONE (15:26)
[2019-07-12 15:38] LABS: Bilirubin,Urine Negative (Negative); Blood,Urine Negative (Negative); Clarity,Urine Clear (Clear); Color,Urine Yellow (Yellow); Glucose,Urine (UA) Normal (Normal); Ketones,Urine Negative (Negative); Leukocyte Esterase,Urine Negative (Negative); Nitrite,Urine Negative (Negative); Protein,Urine Negative (Neg-Trace); Specific Gravity,Urine 1.018 (1.010-1.025); Urobilinogen,Urine Normal (Normal)
--- NOTE | 2019-07-12 15:39 | Emergency Department Note ---
Disposition Clinical Impression: Diverticulitis Disposition: Admitted As Inpatient Condition: Fair Referrals: Ector Vera CNP [Primary Care Provider] - Forms: ED Satisfaction Letter, Work/School Release Time of Disposition: 19:18 General Adult HPI - General Stated complaint: ABD / Back pain Time Seen by Provider: 07/12/19 14:31 Source: patient Limitations: no limitations Nursing Notes Reviewed: Yes Vital Signs Reviewed: Yes - History of Present Illness HPI Narrative: Patient is a 39-year-old female history of history of kidney stones and recent ureteral stent present in the emergency department for abdominal pain. Patient states that on Sunday she had a right ureteral stent removed she had for a kidney stone on the right. Sensation states that on Sunday and Sunday the patient was pain-free with no complications. However on she started developing severe left lower quadrant abdominal pain that is progressively gotten worse she describes it as sharp stabbing 9 out of 10 pain she is now tender throughout her belly. She has nausea but no vomiting. She states this does not feel like it is a kidney stone. Patient states she was a little constipated and took a stool softener she had 2 bowel movements today that were small and runny. She says this removed the pain briefly but the pain returned very quickly. Patient denies dark tarry stools or blood on her stools. Patient has no urinary complaints but she did say when she reviewed there was a little floater in it. Patient denies chest pain, shortness of breath, cough, headache, leg or ankle swelling. Pain Scale: 9 - Related Data Home Medications Medication Instructions Recorded Confirmed Levothyroxine [Synthroid] 150 mcg PO 0630 12/05/15 06/21/19 Fluticasone Propionate Nasal 2 spray NS AD 12/14/15 06/21/19 [Flonase] Allopurinol [Zyloprim 100 MG] 100 mg PO DAILY 06/21/19 06/21/19 Montelukast [Singulair] 10 mg PO HS 06/21/19 06/21/19 Sertraline [Zoloft] 25 mg PO DAILY 06/21/19 06/21/19 Previous Rx's Medication Instructions Recorded Ketorolac [Toradol] 10 mg PO Q6HR #30 tablet 06/23/19 levoFLOXacin [Levaquin] 500 mg PO DAILY 7 Days #7 tablet 06/23/19 Amoxicillin/Clavulanate [Augmentin] 875 mg PO BID #20 tablet 06/27/19 Metoclopramide [Reglan] 10 mg PO TID #10 tab 06/27/19 Phenazopyridine [Pyridium] 100 mg PO NOW 3 Days #9 tablet 06/27/19 Allergies Allergy/AdvReac Type Severity Reaction Status Date / Time cephalexin [From Keflex] Allergy See Verified 02/14/18 12:36 Comments Sulfa (Sulfonamide Allergy Hives Verified 02/14/18 12:36 Antibiotics) All systems ED: reviewed and negative except as stated. Review of Systems: As Per HPI Constitutional: Denies: fever, chills Eyes: Denies: eye pain, eye discharge ENT ED: Denies: ear pain, throat pain Cardiovascular: Denies: chest pain, palpitations Respiratory: Denies: cough, dyspnea Gastrointestinal: Reports: nausea. Denies: abdominal pain, vomiting Genitourinary: Reports: frequency. Denies: urgency, dysuria Musculoskeletal: Denies: back pain, neck pain Integumentary: Denies: rash, abrasion Neurological: Denies: headache, weakness Psychiatric: Denies: anxiety, depression Endocrine: Denies: fatigue, heat or cold intolerance Hematological/Lymphatic: Denies: easy bleeding, easy bruising Allergic/Immunologic: Denies: facial swelling, urticaria Past Medical History - Past Medical History Attestation: Yes The following information was validated with the patient. Source: patient Medical history: Reports: DVT, hyperlipidemia, kidney stones, migraine, pulmonary embolus, other Surgical history: Reports: , cholecystectomy, herniorrhaphy, other Psychiatric history: Reports: anxiety, depression TOY CONSULTANT history: Reports: no TOY CONSULTANT history, other - Social History Smoking Status: Former smoker Smokeless Tobacco Status: No Alcohol use: Reports: none Drug use: Reports: none Physical Exam - General Limitations: no limitations General appearance: alert, in no apparent distress - Head Head exam: atraumatic, normocephalic - Eye Eye exam: Present: normal appearance, PERRL, EOMI. Absent: scleral icterus - ENT ENT exam: normal exam, normal oropharynx, mucous membranes moist - Neck Neck exam: Present: normal inspection, full ROM - Chest Chest inspection: Present: normal inspection, symmetric chest wall rise - Respiratory Respiratory exam: Present: normal lung sounds bilaterally. Absent: respiratory distress, wheezes - Cardiovascular Cardiovascular exam: Present: regular rate, normal rhythm, normal heart sounds - Abdominal Exam Abdominal exam: Present: soft, tenderness, distention, guarding. Absent: rebound, rigidity Abdominal tenderness: Present: LLQ (Point of maximal tenderness), diffuse, moder ate - Extremities Exam Extremities exam: Present: normal inspection, full ROM - Back Exam Back exam: Present: normal inspection, full ROM, CVA tenderness (R), CVA tenderness (L) - Neurological Exam Neurological exam: Present: alert, oriented X3 - Psychiatric Psychiatric exam: Present: normal affect, normal mood - Skin Skin exam: Present: warm, dry Course Vital Signs Temperature 98.3 F 07/12/19 14:57 Pulse Rate 91 07/12/19 14:57 Respiratory Rate 18 07/12/19 14:57 Blood Pressure 136/78 07/12/19 14:57 O2 Sat by Pulse Oximetry 98 07/12/19 14:57 Temperature 98.3 F 07/12/19 14:57 Pulse Rate 98 07/12/19 18:47 Respiratory Rate 18 07/12/19 18:47 Blood Pressure 124/66 07/12/19 18:47 O2 Sat by Pulse Oximetry 99 07/12/19 18:47 Oxygen Delivery Oxygen Delivery Room Air Medical Decision Making - [facility] Narrative Medical decision making narrative: Patient is 39-year-old female history of kidney stones needing stents. Presenting to the emergency department with abdominal pain 5 days after having a stent removed. Concern for stent removal complication or other intra-abdominal cause. Basic labs will be performed as well as CT evaluation of the patient's abdomen. Patient's white count is slightly elevated at 14.1. CT scan of the patient's abdomen with IV contrast demonstrates diverticulitis with a extraluminal component concerning for perforation. Discussed the case with on-call surgeon Dr. Go who recommended the patient be admitted to medicine for IV antibiotics and they will consult on it. Spoke with hospitalist who agreed to admit the patient. - Medical Records Medical records reviewed: Yes I reviewed the patient's medical records. - Lab Data Lab results reviewed: Yes I reviewed the patient's lab results. Result diagrams: 07/12/19 15:29 07/12/19 15:29 Lab Results 07/12/19 07/12/19 07/12/19 Range/Units 15:23 15:23 15:29 WBC 14.7 H (4.3-11.1) K/mcL RBC 4.69 (3.82-4.97) M/mcL Hgb 13.3 (11.5-15.4) g/dL Hct 41.5 (35.3-44.9) % MCV 88.5 (83.0-100.0) fL MCH 28.4 (28.0-33.3) pg MCHC 32.0 (31.6-35.5) g/dL RDW 14.3 (11.5-14.5) % Plt Count 281 (140-400) K/mcL MPV 9.5 (9.4-12.4) fL Immature Gran % 0.7 (0-4) % Seg Neutrophils % 83.0 % Lymphocytes % 8.9 % Monocytes % 6.1 % Eosinophils % 1.0 % Basophils % 0.3 % Neutrophils # 12.2 H (1.6-8.9) K/mcL Lymphocytes # 1.3 (0.6-4.6) K/mcL Monocytes # 0.9 (0.0-1.3) K/mcL Eosinophils # 0.2 (0.0-0.6) K/mcL Basophils # 0.0 (0.0-0.2) K/mcL Sodium (136-145) mEq/L Potassium (3.5-5.1) mEq/L Chloride (98-107) mEq/L Carbon Dioxide (23-29) mEq/L BUN (6-20) mg/dL Creatinine (0.60-1.20) mg/dL Est GFR ( Amer) (> 60) Est GFR (Non-Af Amer) (> 60) BUN/Creatinine Ratio (6-26) Glucose (70-105) mg/dL Calculated Osmolality (280-300) Lactic Acid (0.5-2.2) mmol/L Calcium (8.6-10.3) mg/dL Total Bilirubin (0.3-1.0) mg/dL AST ALT (7-52) Units/L Alkaline Phosphatase (34-104) Units/L Serum Total Protein (6.4-8.9) g/dL Albumin (3.5-5.7) g/dL Globulin (2.4-3.5) g/dL Albumin/Globulin Ratio (1.1-2.2) Lipase (11-82) Units/L Urine Color Yellow (Yellow) Urine Clarity Clear (Clear) Urine pH 7.0 (5.0-8.0) pH Units Ur Specific [place] 1.018 (1.010-1.025) Urine Protein Negative (Neg-Trace) mg/dL Urine Glucose (UA) Normal (Normal) mg/dL Urine Ketones Negative (Negative) mg/dL Urine Blood Negative (Negative) Urine Nitrite Negative (Negative) Urine Bilirubin Negative (Negative) Urine Urobilinogen Normal (Normal) mg/dL Ur Leukocyte Esterase Negative (Negative) Ur Culture Indicated? NO (NO) Urine Test Negative (Negative) 07/12/19 07/12/19 Range/Units 15:29 15:29 WBC (4.3-11.1) K/mcL RBC (3.82-4.97) M/mcL Hgb (11.5-15.4) g/dL Hct (35.3-44.9) % MCV (83.0-100.0) fL MCH (28.0-33.3) pg MCHC (31.6-35.5) g/dL RDW (11.5-14.5) % Plt Count (140-400) K/mcL MPV (9.4-12.4) fL Immature Gran % (0-4) % Seg Neutrophils % % Lymphocytes % % Monocytes % % Eosinophils % % Basophils % % Neutrophils # (1.6-8.9) K/mcL Lymphocytes # (0.6-4.6) K/mcL Monocytes # (0.0-1.3) K/mcL Eosinophils # (0.0-0.6) K/mcL Basophils # (0.0-0.2) K/mcL Sodium 134 L (136-145) mEq/L Potassium 4.3 (3.5-5.1) mEq/L Chloride 97 L (98-107) mEq/L Carbon Dioxide 27 (23-29) mEq/L BUN 14 (6-20) mg/dL Creatinine 0.85 (0.60-1.20) mg/dL Est GFR ( Amer) > 60 (> 60) Est GFR (Non-Af Amer) > 60 (> 60) BUN/Creatinine Ratio 16 (6-26) Glucose 100 (70-105) mg/dL Calculated Osmolality 279 L (280-300) Lactic Acid 0.8 (0.5-2.2) mmol/L Calcium 9.2 (8.6-10.3) mg/dL Total Bilirubin 0.8 (0.3-1.0) mg/dL AST TNP ALT 21 (7-52) Units/L Alkaline Phosphatase 122 H (34-104) Units/L Serum Total Protein 7.4 (6.4-8.9) g/dL Albumin 4.3 (3.5-5.7) g/dL Globulin 3.1 (2.4-3.5) g/dL Albumin/Globulin Ratio 1.4 (1.1-2.2) Lipase 8 L (11-82) Units/L Urine Color (Yellow) Urine Clarity (Clear) Urine pH (5.0-8.0) pH Units Ur Specific [place] (1.010-1.025) Urine Protein (Neg-Trace) mg/dL Urine Glucose (UA) (Normal) mg/dL Urine Ketones (Negative) mg/dL Urine Blood (Negative) Urine Nitrite (Negative) Urine Bilirubin (Negative) Urine Urobilinogen (Normal) mg/dL Ur Leukocyte Esterase (Negative) Ur Culture Indicated? (NO) Urine Test (Negative) - Radiology Data Radiology results reviewed: Yes I reviewed the patient's radiology results. Abdomen/Pelvis CT 07/12/19 18:26 IMPRESSION: 1. Acute diverticulitis involving the proximal sigmoid colon. Single locule of gas seen in the region of inflammatory change which potentially may be extraluminal and reflect focal contained perforation. No organized drainable fluid collection identified. No additional evidence for free intraperitoneal gas identified within the abdomen. 2. Double-J ureteral stent is no longer visualized. No obstructive uropathy evident. D/ / Javier Baker MD / Javier Baker MD Interpreting Provider: Javier Baker MD
[2019-07-12 15:55] LABS: Basophils % 0.3 %; Eosinophils # 0.2 K/mcL (0.0-0.6); Hematocrit 41.5 % (35.3-44.9); Hemoglobin 13.3 g/dL (11.5-15.4); Immature Granulocytes % 0.7 % (0-4); Lymphocytes # 1.3 K/mcL (0.6-4.6); Lymphocytes % 8.9 %; Mean Corpuscular Hemoglobin 28.4 pg (28.0-33.3); Mean Corpuscular Volume 88.5 fL (83.0-100.0); Mean Platelet Volume 9.5 fL (9.4-12.4); Monocytes # 0.9 K/mcL (0.0-1.3); Monocytes % 6.1 %; Neutrophils # 12.2 K/mcL (1.6-8.9); Platelet Count 281 K/mcL (140-400); Red Blood Count 4.69 M/mcL (3.82-4.97); Red Cell Distribution Width 14.3 % (11.5-14.5); White Blood Count 14.7 K/mcL (4.3-11.1)
--- NOTE | 2019-07-12 15:55 | Emergency Department Note ---
Disposition Clinical Impression: Diverticulitis Disposition: Admitted As Inpatient Condition: Fair Referrals: Ector Vrea CNP [Primary Care Provider] - Forms: ED Satisfaction Letter, Work/School Release Time of Disposition: 18:50 General Adult HPI - General Chief complaint: ED Abdominal Pain Stated complaint: ABD / Back pain Time Seen by Provider: 07/12/19 14:31 Source: patient Limitations: no limitations Nursing Notes Reviewed: Yes Vital Signs Reviewed: Yes - History of Present Illness Pain Scale: 9 - Related Data Home Medications Medication Instructions Recorded Confirmed Levothyroxine [Synthroid] 150 mcg PO 0630 12/05/15 06/21/19 Fluticasone Propionate Nasal 2 spray NS AD 12/14/15 06/21/19 [Flonase] Allopurinol [Zyloprim 100 MG] 100 mg PO DAILY 06/21/19 06/21/19 Montelukast [Singulair] 10 mg PO HS 06/21/19 06/21/19 Sertraline [Zoloft] 25 mg PO DAILY 06/21/19 06/21/19 Previous Rx's Medication Instructions Recorded Ketorolac [Toradol] 10 mg PO Q6HR #30 tablet 06/23/19 levoFLOXacin [Levaquin] 500 mg PO DAILY 7 Days #7 tablet 06/23/19 Amoxicillin/Clavulanate [Augmentin] 875 mg PO BID #20 tablet 06/27/19 Metoclopramide [Reglan] 10 mg PO TID #10 tab 06/27/19 Phenazopyridine [Pyridium] 100 mg PO NOW 3 Days #9 tablet 06/27/19 Allergies Allergy/AdvReac Type Severity Reaction Status Date / Time cephalexin [From Keflex] Allergy See Verified 02/14/18 12:36 Comments Sulfa (Sulfonamide Allergy Hives Verified 02/14/18 12:36 Antibiotics) Constitutional: Denies: fever, chills Eyes: Denies: eye pain, eye discharge ENT ED: Denies: ear pain, throat pain Cardiovascular: Denies: chest pain, palpitations Respiratory: Denies: cough, dyspnea Gastrointestinal: Reports: nausea. Denies: abdominal pain, vomiting Genitourinary: Reports: frequency. Denies: urgency, dysuria Musculoskeletal: Denies: back pain, neck pain Integumentary: Denies: rash, abrasion Neurological: Denies: headache, weakness Psychiatric: Denies: anxiety, depression Endocrine: Denies: fatigue, heat or cold intolerance Hematological/Lymphatic: Denies: easy bleeding, easy bruising Allergic/Immunologic: Denies: facial swelling, urticaria Past Medical History - Past Medical History Medical history: Reports: DVT, hyperlipidemia, kidney stones, migraine, pulmonary embolus, other Surgical history: Reports: , cholecystectomy, herniorrhaphy, other Psychiatric history: Reports: anxiety, depression [employer] PHYSICIAN history: Reports: no [facility] PHYSICIAN history, other - Social History Smoking Status: Former smoker Smokeless Tobacco Status: No Alcohol use: Reports: none Drug use: Reports: none Physical Exam - General Limitations: no limitations General appearance: alert, in no apparent distress Course Vital Signs Temperature 98.3 F 07/12/19 14:57 Pulse Rate 91 07/12/19 14:57 Respiratory Rate 18 07/12/19 14:57 Blood Pressure 136/78 07/12/19 14:57 O2 Sat by Pulse Oximetry 98 07/12/19 14:57 Temperature 98.3 F 07/12/19 14:57 Pulse Rate 98 07/12/19 18:47 Respiratory Rate 18 07/12/19 18:47 Blood Pressure 124/66 07/12/19 18:47 O2 Sat by Pulse Oximetry 99 07/12/19 18:47 Oxygen Delivery Oxygen Delivery Room Air Medical Decision Making - Lab Data Result diagrams: 07/12/19 15:29 07/12/19 15:29 Lab Results 07/12/19 07/12/19 07/12/19 Range/Units 15:23 15:23 15:29 WBC 14.7 H (4.3-11.1) K/mcL RBC 4.69 (3.82-4.97) M/mcL Hgb 13.3 (11.5-15.4) g/dL Hct 41.5 (35.3-44.9) % MCV 88.5 (83.0-100.0) fL MCH 28.4 (28.0-33.3) pg MCHC 32.0 (31.6-35.5) g/dL RDW 14.3 (11.5-14.5) % Plt Count 281 (140-400) K/mcL MPV 9.5 (9.4-12.4) fL Immature Gran % 0.7 (0-4) % Seg Neutrophils % 83.0 % Lymphocytes % 8.9 % Monocytes % 6.1 % Eosinophils % 1.0 % Basophils % 0.3 % Neutrophils # 12.2 H (1.6-8.9) K/mcL Lymphocytes # 1.3 (0.6-4.6) K/mcL Monocytes # 0.9 (0.0-1.3) K/mcL Eosinophils # 0.2 (0.0-0.6) K/mcL Basophils # 0.0 (0.0-0.2) K/mcL Sodium (136-145) mEq/L Potassium (3.5-5.1) mEq/L Chloride (98-107) mEq/L Carbon Dioxide (23-29) mEq/L BUN (6-20) mg/dL Creatinine (0.60-1.20) mg/dL Est GFR ( Amer) (> 60) Est GFR (Non-Af Amer) (> 60) BUN/Creatinine Ratio (6-26) Glucose (70-105) mg/dL Calculated Osmolality (280-300) Lactic Acid (0.5-2.2) mmol/L Calcium (8.6-10.3) mg/dL Total Bilirubin (0.3-1.0) mg/dL AST ALT (7-52) Units/L Alkaline Phosphatase (34-104) Units/L Serum Total Protein (6.4-8.9) g/dL Albumin (3.5-5.7) g/dL Globulin (2.4-3.5) g/dL Albumin/Globulin Ratio (1.1-2.2) Lipase (11-82) Units/L Urine Color Yellow (Yellow) Urine Clarity Clear (Clear) Urine pH 7.0 (5.0-8.0) pH Units Ur Specific [place] 1.018 (1.010-1.025) Urine Protein Negative (Neg-Trace) mg/dL Urine Glucose (UA) Normal (Normal) mg/dL Urine Ketones Negative (Negative) mg/dL Urine Blood Negative (Negative) Urine Nitrite Negative (Negative) Urine Bilirubin Negative (Negative) Urine Urobilinogen Normal (Normal) mg/dL Ur Leukocyte Esterase Negative (Negative) Ur Culture Indicated? NO (NO) Urine Test Negative (Negative) 09/21/19 09/21/19 Range/Units 15:29 15:29 WBC (4.3-11.1) K/mcL RBC (3.82-4.97) M/mcL Hgb (11.5-15.4) g/dL Hct (35.3-44.9) % MCV (83.0-100.0) fL MCH (28.0-33.3) pg MCHC (31.6-35.5) g/dL RDW (11.5-14.5) % Plt Count (140-400) K/mcL MPV (9.4-12.4) fL Immature Gran % (0-4) % Seg Neutrophils % % Lymphocytes % % Monocytes % % Eosinophils % % Basophils % % Neutrophils # (1.6-8.9) K/mcL Lymphocytes # (0.6-4.6) K/mcL Monocytes # (0.0-1.3) K/mcL Eosinophils # (0.0-0.6) K/mcL Basophils # (0.0-0.2) K/mcL Sodium 134 L (136-145) mEq/L Potassium 4.3 (3.5-5.1) mEq/L Chloride 97 L (98-107) mEq/L Carbon Dioxide 27 (23-29) mEq/L BUN 14 (6-20) mg/dL Creatinine 0.85 (0.60-1.20) mg/dL Est GFR ( Amer) > 60 (> 60) Est GFR (Non-Af Amer) > 60 (> 60) BUN/Creatinine Ratio 16 (6-26) Glucose 100 (70-105) mg/dL Calculated Osmolality 279 L (280-300) Lactic Acid 0.8 (0.5-2.2) mmol/L Calcium 9.2 (8.6-10.3) mg/dL Total Bilirubin 0.8 (0.3-1.0) mg/dL AST TNP ALT 21 (7-52) Units/L Alkaline Phosphatase 122 H (34-104) Units/L Serum Total Protein 7.4 (6.4-8.9) g/dL Albumin 4.3 (3.5-5.7) g/dL Globulin 3.1 (2.4-3.5) g/dL Albumin/Globulin Ratio 1.4 (1.1-2.2) Lipase 8 L (11-82) Units/L Urine Color (Yellow) Urine Clarity (Clear) Urine pH (5.0-8.0) pH Units Ur Specific [place] (1.010-1.025) Urine Protein (Neg-Trace) mg/dL Urine Glucose (UA) (Normal) mg/dL Urine Ketones (Negative) mg/dL Urine Blood (Negative) Urine Nitrite (Negative) Urine Bilirubin (Negative) Urine Urobilinogen (Normal) mg/dL Ur Leukocyte Esterase (Negative) Ur Culture Indicated? (NO) Urine Test (Negative) Attestation Statement - Attestation Attestation: I examined this patient and my medical decision-making was reviewed with the Resident Physician. I agree with the documented findings, disposition and treatment plan as described except to the extent set forth below. Patient presents to the ED with a chief complaint of abdominal pain. Pain is in the left lower abdomen. Started yesterday around 2 AM. She is unable to get comfortable. She tried a laxative which did give her a bowel movement but did n ot help. Patient recently had a kidney stone. She is in no acute distress on examination. She has diffuse abdominal tenderness more prominent in the left side. Plan. Basic labs, pain control, CT. CT reviewed. Patient with diverticulitis with microperforation. Starting IV antibiotics. Admitted to hospitalist with surgical consult. Abdomen/Pelvis CT 07/12/19 18:26 IMPRESSION: 1. Acute diverticulitis involving the proximal sigmoid colon. Single locule of gas seen in the region of inflammatory change which potentially may be extraluminal and reflect focal contained perforation. No organized drainable fluid collection identified. No additional evidence for free intraperitoneal gas identified within the abdomen. 2. Double-J ureteral stent is no longer visualized. No obstructive uropathy evident. D/ / Javier Baker MD / aJvier Baker MD Interpreting Provider: Javier Baker MD
[2019-07-12 16:12] LABS: Alanine Aminotransferase 21 Units/L (7-52); Albumin 4.3 g/dL (3.5-5.7); Albumin/Globulin Ratio 1.4 (1.1-2.2); Alkaline Phosphatase 122 Units/L (34-104); BUN/Creatinine Ratio 16 (6-26); Bilirubin,Total 0.8 mg/dL (0.3-1.0); Blood Urea Nitrogen 14 mg/dL (6-20); Calcium 9.2 mg/dL (8.6-10.3); Carbon Dioxide 27 mEq/L (23-29); Chloride 97 mEq/L (98-107); Globulin 3.1 g/dL (2.4-3.5); Glucose 100 mg/dL (70-105); Lipase 8 Units/L (11-82); Osmolality,Calculated 279 (280-300); Potassium 4.3 mEq/L (3.5-5.1); Sodium 134 mEq/L (136-145); Total Protein 7.4 g/dL (6.4-8.9); eGFR For African Americans > 60 (> 60); eGFR For Non-African Americans > 60 (> 60)
[2019-07-12] MEDS: 0.9 % Sodium Chloride 1,000 ML IVC SCH (22:32)
[2019-07-12] MEDS ORDERED: Ondansetron 4 MG/2 ML VIAL IVP PRN (22:47)
[2019-07-13] MEDS ORDERED: MetroNIDAZOLE 500 MG/100 ML 500 MG/100 ML BAG IVPB ONE (02:00)
[2019-07-13] MEDS ORDERED: Naloxone 0.4 MG/ML INJ IVP PRN (03:39)
--- NOTE | 2019-07-13 05:12 | Internal Med History&Physical ---
Date of Encounter: 07/13/19 Time of Encounter: 22:00 Internal Medicine - H&P: HPI Chief complaint: Diverticulitis Admitted From: Emergency Dept Plans for Post Hospital Care: Home History of present illness: Ms. Cardenas is a 39 year old female Patient presented to the emergency department with abdominal pain. She has si gnificant recent history of right ureteral stent removal earlier this week for kidney stone. She says after that procedure she went home and felt fine for the next few days however one day ago she developed very bad left lower quadrant pain that progressively worsened. She states it was a stabbing quality. The pain is intermittent but severe when it is present. She is also had associated nausea secondary to the pain. She has never had pain like this before. Emergency department vital signs within normal limits CBC: White count 14.7, otherwise within normal limits BMP: Unremarkable There function tests unremarkable Urinalysis negative for infection Lipase 8 Lactic acid 0.[address] IMPRESSION: 1. Acute diverticulitis involving the proximal sigmoid colon. Single locule of gas seen in the region of inflammatory change which potentially may be extraluminal and reflect focal contained perforation. No organized drainable fluid collection identified. No additional evidence for free intraperitoneal gas identified within the abdomen. 2. Double-J ureteral stent is no longer visualized. No obstructive uropathy evident. In the emergency department patient received a dose of ciprofloxacin and metronidazole. Blood cultures were obtained. A consult to general surgery was placed, and they will consult on the patient in the morning. Patient is admitted to the hospital for further management. Upon my evaluation, patient is resting in the hospital bed in mild distress se condary to abdominal pain. She denies chest pain, diarrhea and constipation. She feels somewhat nauseous, but denies vomiting. Her abdominal pain is located primarily in the left lower quadrant, but she is mildly tender throughout the entire abdomen. She feels somewhat short of breath because she is unable to take deep breaths secondary to abdominal pain. She is a full code. She denies can family medical history. Past Med Surg Social Fam HX - Past Medical History Medical history: DVT, hyperlipidemia, kidney stones, migraine, pulmonary embolus, other Psychiatric history: anxiety, depression - Past Surgical History Surgical History: , cholecystectomy, herniorrhaphy, other Additional surgical history: Ureteral stent - Social History Smoking Status: Former smoker Smokeless Tobacco Status: No Alcohol use: none Drug use: none Internal Medicine - H&P: Meds Levothyroxine [Synthroid] 150 mcg PO 0630 12/05/15 [History] Fluticasone Propionate Nasal [Flonase] 2 spray NS AD 12/14/15 [History] Allopurinol [Zyloprim 100 MG] 100 mg PO DAILY 06/21/19 [History] Montelukast [Singulair] 10 mg PO HS 06/21/19 [History] Sertraline [Zoloft] 25 mg PO DAILY 06/21/19 [History] Ketorolac [Toradol] 10 mg PO Q6HR #30 tablet 06/23/19 [Rx] levoFLOXacin [Levaquin] 500 mg PO DAILY 7 Days #7 tablet 06/23/19 [Rx] Amoxicillin/Clavulanate [Augmentin] 875 mg PO BID #20 tablet 06/27/19 [Rx] Metoclopramide [Reglan] 10 mg PO TID #10 tab 06/27/19 [Rx] Phenazopyridine [Pyridium] 100 mg PO NOW 3 Days #9 tablet 06/27/19 [Rx] Methocarbamol 750 mg PO BID 07/12/19 [History] Allergy/AdvReac Type Severity Reaction Status Date / Time cephalexin [From Keflex] Allergy See Verified 02/14/18 12:36 Comments Sulfa (Sulfonamide Allergy Hives Verified 02/14/18 12:36 Antibiotics) All Systems PM: A 10-system review of systems was performed and is negative for pertinent findings except as documented above in the HPI. - Constitutional Vitals: Temp Pulse Resp BP Pulse Ox 98.6 F 90 18 79/37 98 07/13/19 03:30 07/13/19 03:30 07/13/19 03:30 07/13/19 03:30 07/13/19 03:30 General appearance: Present: cooperative, mild distress, A&O X 3, pleasant, answers questions appropriately Exam: - - Head Head exam: Present: normal inspection - Eye Eye exam: Present: EOMI, normal appearance - Respiratory Respiratory exam: Present: CTAB. Absent: rales, respiratory distress, rhonchi, wheezes - Cardiovascular Cardiovascular exam: Present: RRR. Absent: diastolic murmur, systolic murmur - GI/Abdominal GI/Abdominal exam: Present: normal bowel sounds, soft, tenderness Additional comments: Patient primarily tender to the left lower quadrant as well as mildly tender throughout abdomen. - Extremities Exam Extremities exam: Present: warm, radial pulses palpable and symmetrical. Absent: calf tenderness, pedal edema, tenderness - Neurological Exam Neurological exam: Present: no focal deficits, strengths equal and symetr throughout. Absent: motor sensory deficit, facial droop, speech deficit - Skin Skin exam: Present: dry, normal color, warm Internal Med - H&P Results - Labs CBC & Chem 7: 07/12/19 15:29 07/12/19 15:29 Labs: Short CBC 07/12/19 Range/Units 15:29 WBC 14.7 H (4.3-11.1) K/mcL Hgb 13.3 (11.5-15.4) g/dL Hct 41.5 (35.3-44.9) % Plt Count 281 (140-400) K/mcL Neutrophils # 12.2 H (1.6-8.9) K/mcL BMP 07/12/19 15:29 Sodium 134 L Potassium 4.3 Chloride 97 L Carbon Dioxide 27 BUN 14 Creatinine 0.85 Glucose 100 Calcium 9.2 Liver Function 07/12/19 Range/Units 15:29 Total Bilirubin 0.8 (0.3-1.0) mg/dL AST TNP ALT 21 (7-52) Units/L Alkaline Phosphatase 122 H (34-104) Units/L Albumin 4.3 (3.5-5.7) g/dL Urine 07/12/19 Range/Units 15:23 Urine Color Yellow (Yellow) Urine Clarity Clear (Clear) Urine pH 7.0 (5.0-8.0) pH Units Ur Specific [place] 1.018 (1.010-1.025) Urine Protein Negative (Neg-Trace) mg/dL Urine Glucose (UA) Normal (Normal) mg/dL - Impressions ITS Impressions Abdomen/Pelvis CT 07/12/19 18:26 IMPRESSION: 1. Acute diverticulitis involving the proximal sigmoid colon. Single locule of gas seen in the region of inflammatory change which potentially may be extraluminal and reflect focal contained perforation. No organized drainable fluid collection identified. No additional evidence for free intraperitoneal gas identified within the abdomen. 2. Double-J ureteral stent is no longer visualized. No obstructive uropathy evident. D/ / Javier Baker MD / Javier Baker MD Interpreting Provider: Javier Baker MD - Assessment and Plan (1) Diverticulitis Current Visit: Yes Status: Acute Assessment and plan: As seen on abdominal CT. Patient was started on ciprofloxacin and Flagyl in the emergency department. Blood cultures were drawn. General surgery will consult on the patient in the morning. Follow-up general surgery recommendations Nothing by mouth except for ice chips Continue IV antibiotics Follow-up blood cultures Pain management as needed Simethicone as needed (2) Abdominal pain Current Visit: Yes Status: Acute Assessment and plan: Secondary to diverticulitis. Management as above Qualifiers: Abdominal location: left lower quadrant Qualified Code(s): R10.32 - Left lower quadrant pain (3) Nausea without vomiting Current Visit: No Status: Acute Assessment and plan: Continue symptomatic management, Zofran as needed (4) BASIL on CPAP Current Visit: No Status: Chronic Assessment and plan: Patient will continue to use her home CPAP machine (5) DVT prophylaxis Current Visit: No Status: Acute Assessment and plan: Subcutaneous heparin - Time Spent With Patient Total time spent is greater than 50% in coordination of care (as documented) at patient's floor/unit and/or counseling patient:
[2019-07-13 05:24] LABS: Hematocrit 37.5 % (35.3-44.9); Hemoglobin 12.1 g/dL (11.5-15.4); Mean Corpuscular HGB Conc 32.3 g/dL (31.6-35.5); Mean Corpuscular Hemoglobin 28.7 pg (28.0-33.3); Mean Corpuscular Volume 88.9 fL (83.0-100.0); Mean Platelet Volume 9.4 fL (9.4-12.4); Platelet Count 239 K/mcL (140-400); Red Blood Count 4.22 M/mcL (3.82-4.97); Red Cell Distribution Width 14.4 % (11.5-14.5)
[2019-07-13] MEDS: Simethicone 80 MG TAB.CHEW PO PRN ×2 (05:38→11:53)
[2019-07-13 05:48] LABS: BUN/Creatinine Ratio 14 (6-26); Blood Urea Nitrogen 12 mg/dL (6-20); Calcium 8.4 mg/dL (8.6-10.3); Carbon Dioxide 25 mEq/L (23-29); Chloride 102 mEq/L (98-107); Glucose 112 mg/dL (70-105); Osmolality,Calculated 277 (280-300); Potassium 3.8 mEq/L (3.5-5.1); Sodium 133 mEq/L (136-145); eGFR For African Americans > 60 (> 60); eGFR For Non-African Americans > 60 (> 60)
[2019-07-13] MEDS: *HR* Heparin 5,000 UNIT/ML VIAL SQ SCH ×2 (06:03→18:00)
--- NOTE | 2019-07-13 08:05 | Event Note ---
Date of Encounter: 07/13/19 Time of Encounter: 08:50 Ms Cardenas is being observed for diverticulitis She has pmhx HLD, BASIL on cpap Kidney stones s/p right ureteral stent removal earlier this week, Anxiety/Depression, Hypothyroidism and hx dvt/pe no longer on AC Awake in bed with family at bedside. No fevers or chills. + nausea from pain she believes, no emesis. Pain is significant, diffuse, worst in LLQ and exacerbated by movement. She is aware of low BPs with opiates and need to hold at times for this reason, she is also aware of possible perforation on CT imaging and that surgery will be in to see her. She remains npo gen- alert, awake,appears stated age, obese cv- reg rate and rhythm, normal s1,s2, no murmurs appreciated lungs- ctabl, normal resp effort on room air abd- soft, difusely tender with guarding but no rigidity, non distended, + bs neuro- AAOx3 Acute Sigmoid Diverticulitis w Possible contained perforation on CT scan -cont npo, IV cipro + flagyl -surgery consulted on admission, will fu recs -cautious prn pain control given it has proved to drop her BPs w administration, hold parameters in place Chronic Conditions: hypothyroidism- cont synthroid 150 MCG home med rec states 150 MG and this needs updated prior to dc Anxiety/Depression- resume zoloft when able to take PO BASIL- cont cpap GERD- IV PPI in place of home oral DVT/PE hx remote not on AC- sub q hep for vte ppx at this time holding non essential home meds at this time vte ppx sqh
[2019-07-13] MEDS: 0.9 % Sodium Chloride 1,000 ML IVC SCH ×2 (08:11→17:57)
[2019-07-13] MEDS: MetroNIDAZOLE 500 MG/100 ML 500 MG/100 ML BAG IVPB SCH ×2 (08:11→16:12)
[2019-07-13] MEDS ORDERED: Acetaminophen IV 1,000 MG/100 ML INFUS..BTL IVPB ONE (12:00)
--- NOTE | 2019-07-13 13:31 | AcuteCare Surgery Consult Note ---
Date of Encounter: 07/13/19 Time of Encounter: 13:30 Assessment and Plan (1) Sigmoid diverticulitis Current Visit: Yes Status: Acute I informed the patient that I personally reviewed her CT scan images and report. She does have evidence of sigmoid diverticulitis and I agree with the IV antibiotic choice. I think it is reasonable to continue with just ice chips for now and then tomorrow see how she feels and possibly advance her to clear liquids. I did explain to the patient that it usually takes at least 48 hours for her abdominal pain to improve with the antibiotics. Will follow along with you. History of Present Illness Consult date: 07/13/19 Requesting physician: Felton Su History of present illness: The patient is a 39-year-old female with a past medical history significant for morbid obesity and ureteral stones who recently had a ureteral stent removed a week ago from the right ureter states that she started having left lower quadra nt abdominal pain at around 2 AM on Sunday morning. She says that the pain was sharp in nature and continue with and was exacerbated by movement. She says normally she has a bowel movement twice per day but yesterday she had difficulty with a bowel movement and took a laxative. She admits to nausea but denies any vomiting and denies any rectal bleeding. Because of the persistent and worsening abdominal patient presented herself to the emergency room and was then subsequently transferred to [facility] for further evaluation. Past Med Surg Social Fam HX - Past Medical History Medical history: DVT, hyperlipidemia, kidney stones, migraine, pulmonary embolus, other Psychiatric history: anxiety, depression - Past Surgical History Surgical History: , cholecystectomy, herniorrhaphy, other Additional surgical history: Ureteral stent - Social History Smoking Status: Former smoker Smokeless Tobacco Status: No Alcohol use: none Drug use: none Medications and Allergies Fluticasone Propionate Nasal [Flonase] 2 spray NS DAILY PRN 12/14/15 [History] Allopurinol [Zyloprim 100 MG] 100 mg PO DAILY 06/21/19 [History] Montelukast [Singulair] 10 mg PO HS 06/21/19 [History] Sertraline [Zoloft] 25 mg PO DAILY 06/21/19 [History] Methocarbamol [Robaxin] 750 mg PO BID PRN 07/12/19 [History] Levothyroxine Sodium [Euthyrox] 150 mg PO DAILY 07/13/19 [History] Minocycline HCl 100 mg PO BID PRN 07/13/19 [History] Pantoprazole Sodium [Protonix] 40 mg PO DAILY 07/13/19 [History] Allergy/AdvReac Type Severity Reaction Status Date / Time cephalexin [From Keflex] Allergy Hives Verified 07/13/19 10:50 Sulfa (Sulfonamide Allergy Hives Verified 07/13/19 10:50 Antibiotics) Review of Systems All systems PM: reviewed and no additional remarkable complaints except as stated All systems PM: The remainder of the systems were reviewed and are negative General Surgery Exam Initial Vital Signs Temp Pulse Resp BP Pulse Ox 98.3 F 91 18 136/78 98 07/12/19 14:57 07/12/19 14:57 07/12/19 14:57 07/12/19 14:57 07/12/19 14:57 - General physical appearance well nourished, no distress - Respiratory normal expansion, normal respiratory effort, clear to auscultation - Cardiovascular Cardiovascular exam: Present: RRR, no murmurs/rubs/gallops - Abdomen Abdomen general surgery: Present: bowel sounds present, soft, tender (Tender to palpation in the left lower quadrant. Patient is tender to palpation in the bilateral upper quadrant but the left lower quadrant is the most significant location of pain) - Neurologic Present: CN 2-12 grossly intact - Musculoskeletal Present: other (No clubbing or cyanosis.) - Psychiatric Psychiatric general surgery: Present: A&Ox3, oriented to person, oriented to place, oriented to time Exam Initial Vital Signs Temp Pulse Resp BP Pulse Ox 98.3 F 91 18 136/78 98 07/12/19 14:57 07/12/19 14:57 07/12/19 14:57 07/12/19 14:57 07/12/19 14:57 Results - Labs 07/13/19 04:46 07/13/19 04:46 Abnormal lab results WBC 13.0 K/mcL (4.3-11.1) H 07/13/19 04:46 Neutrophils # 12.2 K/mcL (1.6-8.9) H 07/12/19 15:29 Sodium 133 mEq/L (136-145) L 07/13/19 04:46 Chloride 97 mEq/L (98-107) L 07/12/19 15:29 Glucose 112 mg/dL (70-105) H 07/13/19 04:46 Calculated Osmolality 277 (280-300) L 07/13/19 04:46 Calcium 8.4 mg/dL (8.6-10.3) L 07/13/19 04:46 Alkaline Phosphatase 122 Units/L (34-104) H 07/12/19 15:29 Lipase 8 Units/L (11-82) L 07/12/19 15:29 Diabetes panel 07/12/19 07/13/19 Range/Units 15:29 04:46 Sodium 134 L 133 L (136-145) mEq/L Potassium 4.3 3.8 (3.5-5.1) mEq/L Chloride 97 L 102 (98-107) mEq/L Carbon Dioxide 27 25 (23-29) mEq/L BUN 14 12 (6-20) mg/dL Creatinine 0.85 0.88 (0.60-1.20) mg/dL Glucose 100 112 H (70-105) mg/dL Calcium 9.2 8.4 L (8.6-10.3) mg/dL AST TNP ALT 21 (7-52) Units/L Alkaline Phosphatase 122 H (34-104) Units/L Albumin 4.3 (3.5-5.7) g/dL Calcium panel 07/12/19 07/13/19 Range/Units 15:29 04:46 Calcium 9.2 8.4 L (8.6-10.3) mg/dL Albumin 4.3 (3.5-5.7) g/dL Pituitary panel 07/12/19 07/13/19 Range/Units 15:29 04:46 Sodium 134 L 133 L (136-145) mEq/L Potassium 4.3 3.8 (3.5-5.1) mEq/L Chloride 97 L 102 (98-107) mEq/L Carbon Dioxide 27 25 (23-29) mEq/L BUN 14 12 (6-20) mg/dL Creatinine 0.85 0.88 (0.60-1.20) mg/dL Glucose 100 112 H (70-105) mg/dL Calcium 9.2 8.4 L (8.6-10.3) mg/dL Adrenal panel 09/21/19 09/22/19 Range/Units 15:29 04:46 Sodium 134 L 133 L (136-145) mEq/L Potassium 4.3 3.8 (3.5-5.1) mEq/L Chloride 97 L 102 (98-107) mEq/L Carbon Dioxide 27 25 (23-29) mEq/L BUN 14 12 (6-20) mg/dL Creatinine 0.85 0.88 (0.60-1.20) mg/dL Glucose 100 112 H (70-105) mg/dL Calcium 9.2 8.4 L (8.6-10.3) mg/dL Total Bilirubin 0.8 (0.3-1.0) mg/dL AST TNP ALT 21 (7-52) Units/L Alkaline Phosphatase 122 H (34-104) Units/L Albumin 4.3 (3.5-5.7) g/dL All other labs normal. - Imaging CT scan - abdomen: report reviewed, image reviewed (I personally reviewed the CT scan images and report which demonstrated evidence of sigmoid diverticulitis with no evidence of an abscess collection) Consult Discharge Plan - Plan Referrals: Ector Vera, RESPIRATORY SCIENTIST [Primary Care Provider] -
[2019-07-14] MEDS: Simethicone 80 MG TAB.CHEW PO PRN (01:56)
[2019-07-14] MEDS: MetroNIDAZOLE 500 MG/100 ML 500 MG/100 ML BAG IVPB SCH ×4 (03:05→23:06)
[2019-07-14] MEDS: *HR* Heparin 5,000 UNIT/ML VIAL SQ SCH ×2 (05:20→18:28)
[2019-07-14 05:56] LABS: Basophils % 0.4 %; Eosinophils # 0.3 K/mcL (0.0-0.6); Hematocrit 34.9 % (35.3-44.9); Hemoglobin 11.1 g/dL (11.5-15.4); Immature Granulocytes % 1.3 % (0-4); Lymphocytes # 1.3 K/mcL (0.6-4.6); Lymphocytes % 13.8 %; Mean Corpuscular HGB Conc 31.8 g/dL (31.6-35.5); Mean Corpuscular Hemoglobin 27.8 pg (28.0-33.3); Mean Corpuscular Volume 87.5 fL (83.0-100.0); Mean Platelet Volume 9.4 fL (9.4-12.4); Monocytes # 0.5 K/mcL (0.0-1.3); Monocytes % 5.3 %; Neutrophils # 7.3 K/mcL (1.6-8.9); Platelet Count 256 K/mcL (140-400); Red Blood Count 3.99 M/mcL (3.82-4.97); Red Cell Distribution Width 14.3 % (11.5-14.5); Segmented Neutrophils % 76.2 %; White Blood Count 9.6 K/mcL (4.3-11.1)
[2019-07-14 06:09] LABS: BUN/Creatinine Ratio 13 (6-26); Blood Urea Nitrogen 11 mg/dL (6-20); Calcium 8.3 mg/dL (8.6-10.3); Carbon Dioxide 22 mEq/L (23-29); Chloride 105 mEq/L (98-107); Glucose 85 mg/dL (70-105); Osmolality,Calculated 279 (280-300); Potassium 3.8 mEq/L (3.5-5.1); Sodium 135 mEq/L (136-145); eGFR For African Americans > 60 (> 60); eGFR For Non-African Americans > 60 (> 60)
--- NOTE | 2019-07-14 08:10 | Internal Med Progress Note ---
<Leora Avina - Last Filed: 07/14/19 12:57> Hospitalist Progress Note - Encounter Date of Encounter: 07/14/19 - Exam Vitals: Temp Pulse Resp BP Pulse Ox 97.4 F L 90 15 108/66 97 07/14/19 10:54 07/14/19 10:54 07/14/19 10:54 07/14/19 10:54 07/14/19 10:54 - Assessment and Plan (1) Diverticulitis Current Visit: Yes Status: Acute (2) Abdominal pain Current Visit: Yes Status: Acute (3) Nausea without vomiting Current Visit: No Status: Acute (4) BASIL on CPAP Current Visit: No Status: Chronic (5) DVT prophylaxis Current Visit: No Status: Acute - Time Spent with Patient Total time spent is greater than 50% in coordination of care (as documented) at patient's floor/unit and/or counseling patient: Internal Medicine: Result - Labs CBC & Chem 7: 07/14/19 05:16 07/14/19 05:16 Labs: Short CBC 07/14/19 Range/Units 05:16 WBC 9.6 (4.3-11.1) K/mcL Hgb 11.1 L (11.5-15.4) g/dL Hct 34.9 L (35.3-44.9) % Plt Count 256 (140-400) K/mcL Neutrophils # 7.3 (1.6-8.9) K/mcL BMP 07/14/19 05:16 Sodium 135 L Potassium 3.8 Chloride 105 Carbon Dioxide 22 L BUN 11 Creatinine 0.85 Glucose 85 Calcium 8.3 L Consult Discharge Plan - Plan Referrals: Ector Vera, J[employer] J[employer] APPLICATION DEVELOPER [Primary Care Provider] - - Attending Attestation Ms Cardenas is being observed for diverticulitis w microperforation Awake in bed, overall pain beginning to slowly improve,more tolerable, no fevers, chills, n/v. gen- alert, awake,appears stated age, obese cv- reg rate and rhythm, normal s1,s2 lungs- ctabl, normal resp effort on room air abd- soft, diffusely tender with guarding but no rigidity, + bs neuro- AAOx3 Acute Sigmoid Diverticulitis w microperforation-cont ice chips, IV cipro + flagyl,appreciate surg input hypothyroidism- cont synthroid 150 MCG home med rec states 150 MG and this needs updated prior to dc Anxiety/Depression- zoloft further dx and plan as noted by resident <Tomi Goode - Last Filed: 07/14/19 18:21> Hospitalist Progress Note - Encounter Date of Encounter: 07/14/19 Time of Encounter: 08:40 - Subjective Interval History: the patient is seen and examined at bedside. She says that she is feeling okay at this time. She is emotionally distraught as she is having family concerns, and these are very depressing to her. She says that her pain is mostly well controlled when she is able to give her Toradol, however and she is not able to get this it does get very poorly controlled. She does continue to have significant abdominal tenderness. She continues to eat only ice chips per surgery. She is not having bowel movements. she denies fevers, chills, sweats. - Exam Vitals: Temp Pulse Resp BP Pulse Ox 97.8 F 74 15 99/62 96 07/14/19 06:38 07/14/19 06:38 07/14/19 06:38 07/14/19 06:38 07/14/19 06:38 Exam: Gen: Vitals noted. No acute distress. Eyes: anicteric sclerae, moist conjunctivae; no lid-lag HENT: Atraumatic; oropharynx clear with moist mucous membranes and no mucosal ulcerations; normal hard and soft palate Neck: Trachea midline; supple, no thyromegaly or lymphadenopathy Cardiac: RRR, no murmur, +S1/S2 Pulmonary: CTA bilaterally, no wheezes, rales or rhonchi, equal chest expansion Abdomen: currently soft, guarding present in the left lower quadrant with rebound tenderness MSK: ROM intact, no joint swelling noted Extremities: no BLE edema, nontender calf, no cyanosis or clubbing Skin: Normal temperature, turgor and texture; no rash, ulcers or subcutaneous nodules Neuro: moves all extremities, no focal deficits. Psych: Appropriate mood and behavior. A&Ox3 - Assessment and Plan (1) Sigmoid diverticulitis Current Visit: Yes Status: Acute Assessment and Plan: acute sigmoid diverticulitis with microperforation Acute care surgery is on board, recommend nothing by mouth except for ice chips Currently managing with IV antibiotics, ciprofloxacin and Flagyl day 3, duration depends on clinical course continue oxycodone and Toradol for pain management we will continue to monitor along surgery, appreciate recommendations. (2) Depression Current Visit: Yes Status: Acute Assessment and Plan: depression, on Zoloft Patient also has significant home stressors which are causing concern for her We will continue her Zoloft at this time. (3) BASIL on CPAP Current Visit: No Status: Chronic Assessment and Plan: management per respiratory therapy DVT Prophylaxis: subcutaneous heparin - Time Spent with Patient Total time spent is greater than 50% in coordination of care (as documented) at patient's floor/unit and/or counseling patient: Internal Medicine: Result - Labs CBC & Chem 7: 07/14/19 05:16 07/14/19 05:16 Labs: Short CBC 07/14/19 Range/Units 05:16 WBC 9.6 (4.3-11.1) K/mcL Hgb 11.1 L (11.5-15.4) g/dL Hct 34.9 L (35.3-44.9) % Plt Count 256 (140-400) K/mcL Neutrophils # 7.3 (1.6-8.9) K/mcL BMP 07/14/19 05:16 Sodium 135 L Potassium 3.8 Chloride 105 Carbon Dioxide 22 L BUN 11 Creatinine 0.85 Glucose 85 Calcium 8.3 L <Leora Avina - Last Filed: 07/14/19 12:57> (2) Abdominal pain Qualifiers: Abdominal location: left lower quadrant Qualified Code(s): R10.32 - Left lowe r quadrant pain <Tomi Gooed - Last Filed: 07/14/19 18:21> (2) Depression Qualifiers: Depression Type: unspecified Qualified Code(s): F32.9 - Major depressive disorder, single episode, unspecified
--- NOTE | 2019-07-14 09:07 | AcuteCareSurgery Progress Note ---
<Lynn Palomino - Last Filed: 07/14/19 09:04> Date of Encounter: 07/14/19 Time of Encounter: 07:15 - Assessment and Plan (1) Perforation of sigmoid colon due to diverticulitis Current Visit: Yes Status: Acute Microperforation of proximal sigmoid coon per CT on 07/12/2019. She continues with involuntary guarding and left upper and lower quadrant discomfort. Her white blood cell count has normalized and she is afebrile. Recommend continuing ice chips until involuntary guarding has resolved. Plan: Continue supportive care and discomfort management Out of bed to chair TID, do not offer meal trays while in the bed Activity as tolerated Apply ice 20 minutes on 20 minutes off as needed Cares per primary team Repeat a.m. labs Acute care surgery will continue to follow along with you make recommendations. Subjective Patient reports: no new complaints, feels better, still having pain, pain is less, voiding w/o difficulty, flatus, no bowel movement, afebrile Objective Vital Signs - Last 8 Hours Temp Pulse Resp BP Pulse Ox 07/14/19 06:38 97.8 F 74 15 99/62 96 07/14/19 03:42 98.2 F 76 17 93/60 94 07/14/19 01:48 110/79 Intake and Output 07/13/19 07/14/19 07/14/19 23:59 07:59 15:59 Intake Total 1300 / 2700 Output Total 1200 / 2200 300 / 300 Balance 100 / 500 -300 / -300 Intake: IV Fluids 1300 / 2700 0.9 % Sodium Chloride 1,000 ML 1000 / 2000 @ 125 mls/hr IVC .Q8H UTE Rx#: [id number] Cipro Premix 400 MG/200 ML 400 200 / 400 mg In 200 ml @ 200 mls/hr IVPB Q12HR UTE Rx#:[id number] Flagyl Premix 500 MG/100 ML 500 100 / 200 mg In 100 ml @ 100 mls/hr IVPB Q8HR UTE Rx#:[id number] Output: Urine 1200 / 2200 300 / 300 Other: Meal npo Stool Size Small Stool Consistency liquid Stool Color Yellow Green # Voids 2 Weight 166.5 kg Blood Glucose* 90 79 Patient Weight 07/14/19 23:59 Weight 166.5 kg - General physical appearance moderate pain, obese - ENT atraumatic, normocephalic - Neck Neck exam: trachea midline - Respiratory normal expansion, normal respiratory effort, clear to auscultation - Cardiovascular Cardiovascular exam: Present: distant heart sounds - Abdomen Abdomen: Present: bowel sounds present, soft, tender, guarding Abdominal Tenderness: LUQ, LLQ - Integumentary no rash - Neurologic normal coordination, normal sensation - Musculoskeletal normal posture - Psychiatric oriented to time, oriented to person, oriented to place, speech is normal, memory intact - Labs 07/14/19 05:16 07/14/19 05:16 Diabetes panel 07/14/19 Range/Units 05:16 Sodium 135 L (136-145) mEq/L Potassium 3.8 (3.5-5.1) mEq/L Chloride 105 (98-107) mEq/L Carbon Dioxide 22 L (23-29) mEq/L BUN 11 (6-20) mg/dL Creatinine 0.85 (0.60-1.20) mg/dL Glucose 85 (70-105) mg/dL Calcium 8.3 L (8.6-10.3) mg/dL Calcium panel 07/14/19 Range/Units 05:16 Calcium 8.3 L (8.6-10.3) mg/dL Pituitary panel 07/14/19 Range/Units 05:16 Sodium 135 L (136-145) mEq/L Potassium 3.8 (3.5-5.1) mEq/L Chloride 105 (98-107) mEq/L Carbon Dioxide 22 L (23-29) mEq/L BUN 11 (6-20) mg/dL Creatinine 0.85 (0.60-1.20) mg/dL Glucose 85 (70-105) mg/dL Calcium 8.3 L (8.6-10.3) mg/dL Adrenal panel 07/14/19 Range/Units 05:16 Sodium 135 L (136-145) mEq/L Potassium 3.8 (3.5-5.1) mEq/L Chloride 105 (98-107) mEq/L Carbon Dioxide 22 L (23-29) mEq/L BUN 11 (6-20) mg/dL Creatinine 0.85 (0.60-1.20) mg/dL Glucose 85 (70-105) mg/dL Calcium 8.3 L (8.6-10.3) mg/dL Consult Discharge Plan - Plan Referrals: Ector Vera, [employer] [Primary Care Provider] - <MarkYaminin Zoltan - Last Filed: 07/14/19 10:34> Date of Encounter: 07/14/19 Objective Vital Signs - Last 8 Hours Temp Pulse Resp BP Pulse Ox 07/14/19 06:38 97.8 F 74 15 99/62 96 07/14/19 03:42 98.2 F 76 17 93/60 94 Intake and Output 07/13/19 07/14/19 07/14/19 23:59 07:59 15:59 Intake Total 1300 / 2700 1100 / 1100 Output Total 1200 / 2200 300 / 750 450 / 750 Balance 100 / 500 800 / 350 -450 / 350 Intake: IV Fluids 1300 / 2700 1100 / 1100 0.9 % Sodium Chloride 1,000 ML 1000 / 2000 1000 / 1000 @ 125 mls/hr IVC .Q8H UTE Rx#: [id number] Cipro Premix 400 MG/200 ML 400 200 / 400 mg In 200 ml @ 200 mls/hr IVPB Q12HR UTE Rx#:[id number] Flagyl Premix 500 MG/100 ML 500 100 / 200 100 / 100 mg In 100 ml @ 100 mls/hr IVPB Q8HR UTE Rx#:[id number] Output: Urine 1200 / 2200 300 / 750 450 / 750 Other: Meal npo npo Percent of Meal Consumed 0% Stool Size Small Stool Consistency liquid Stool Color Yellow Green # Voids 2 Weight 166.5 kg Blood Glucose* 90 79 Patient Weight 07/14/19 23:59 Weight 166.5 kg - Labs 07/14/19 05:16 07/14/19 05:16 Diabetes panel 07/14/19 Range/Units 05:16 Sodium 135 L (136-145) mEq/L Potassium 3.8 (3.5-5.1) mEq/L Chloride 105 (98-107) mEq/L Carbon Dioxide 22 L (23-29) mEq/L BUN 11 (6-20) mg/dL Creatinine 0.85 (0.60-1.20) mg/dL Glucose 85 (70-105) mg/dL Calcium 8.3 L (8.6-10.3) mg/dL Calcium panel 07/14/19 Range/Units 05:16 Calcium 8.3 L (8.6-10.3) mg/dL Pituitary panel 07/14/19 Range/Units 05:16 Sodium 135 L (136-145) mEq/L Potassium 3.8 (3.5-5.1) mEq/L Chloride 105 (98-107) mEq/L Carbon Dioxide 22 L (23-29) mEq/L BUN 11 (6-20) mg/dL Creatinine 0.85 (0.60-1.20) mg/dL Glucose 85 (70-105) mg/dL Calcium 8.3 L (8.6-10.3) mg/dL Adrenal panel 07/14/19 Range/Units 05:16 Sodium 135 L (136-145) mEq/L Potassium 3.8 (3.5-5.1) mEq/L Chloride 105 (98-107) mEq/L Carbon Dioxide 22 L (23-29) mEq/L BUN 11 (6-20) mg/dL Creatinine 0.85 (0.60-1.20) mg/dL Glucose 85 (70-105) mg/dL Calcium 8.3 L (8.6-10.3) mg/dL - Attending Attestation I have personally performed a face to face evaluation on this patient. I have reviewed and agree with the care plan. History and Exam by me shows: The patient is seen and evaluated on morning rounds with the acute care surgery team. She has had interval improvement in her abdominal pain. I personally reviewed the CAT scan of the abdomen from admission. There is no discrete abscess. We will plan to continue with broad-spectrum IV antibiotics appropriate for diverticulitis. She is overall improved.
[2019-07-14] MEDS: 0.9 % Sodium Chloride 1,000 ML IVC SCH ×3 (10:28→19:51)
[2019-07-14] MEDS: Ketorolac 30 MG/ML VIAL IVP PRN ×2 (10:43→23:06)
[2019-07-14] MEDS: Pantoprazole 40 MG VIAL IVP SCH (10:43)
[2019-07-15] MEDS: *HR* Heparin 5,000 UNIT/ML VIAL SQ SCH ×2 (05:52→18:07)
[2019-07-15] MEDS: 0.9 % Sodium Chloride 1,000 ML IVC SCH (05:57)
[2019-07-15] MEDS: Pantoprazole 40 MG VIAL IVP SCH (08:01)
[2019-07-15] MEDS: MetroNIDAZOLE 500 MG/100 ML 500 MG/100 ML BAG IVPB SCH ×3 (08:01→23:55)
--- NOTE | 2019-07-15 08:39 | Internal Med Progress Note ---
<Leora Avina - Last Filed: 07/15/19 12:31> Hospitalist Progress Note - Encounter Date of Encounter: 07/15/19 - Exam Vitals: Temp Pulse Resp BP Pulse Ox 98.1 F 77 16 115/75 97 07/15/19 11:43 07/15/19 11:43 07/15/19 11:43 07/15/19 11:43 07/15/19 11:43 - Assessment and Plan (1) Diverticulitis Current Visit: Yes Status: Acute (2) Abdominal pain Current Visit: Yes Status: Acute (3) Nausea without vomiting Current Visit: No Status: Acute (4) BASIL on CPAP Current Visit: No Status: Chronic (5) DVT prophylaxis Current Visit: No Status: Acute - Time Spent with Patient Total time spent is greater than 50% in coordination of care (as documented) at patient's floor/unit and/or counseling patient: Internal Medicine: Result - Labs CBC & Chem 7: 07/14/19 05:16 07/14/19 05:16 Consult Discharge Plan - Plan Instructions: Diverticulitis (DC), Diverticulitis Diet (DC) Referrals: Ector Vera, UX DESIGNER [Primary Care Provider] - - Attending Attestation Ms Cardenas is being observed for diverticulitis w microperforation Awake walking in room ,abd pain improving, no fevers or chills gen- alert, awake,appears stated age, obese cv- reg rate and rhythm, no le edema lungs- ctabl normal resp effort on room air abd- soft, tender diffusely but without guarding, but no rigidity, + bs neuro- AAOx3 Acute Sigmoid Diverticulitis w microperforation-diet advancement per surg, IV cipro + flagyl hypothyroidism- cont synthroid 150 MCG home med rec states 150 MG and this needs updated prior to dc Anxiety/Depression- zoloft further dx and plan as noted by resident <Tomi Goode - Last Filed: 07/15/19 16:11> Hospitalist Progress Note - Encounter Date of Encounter: 07/15/19 Time of Encounter: 09:20 - Subjective Interval History: the patient is seen and examined at bedside. She says that she is feeling significantly better than she was yesterday. Her pain has generally resolved and she is able to get up and moving without many problems. She has been tolerating ice chips and some liquids without many concerns. She was seen by surgery this morning and they decided that she can advance to clear liquids. She says that her abdominal pain has totally resolved. She is using the restroom without many concerns. She denies any fevers, chills, sweats overnight. She has no acute complaints today. - Exam Vitals: Temp Pulse Resp BP Pulse Ox 97.8 F 72 16 117/76 96 07/15/19 03:52 07/15/19 03:52 07/15/19 03:52 07/15/19 03:52 07/15/19 03:52 Exam: Gen: Vitals noted. No acute distress. Eyes: anicteric sclerae, moist conjunctivae; no lid-lag HENT: Atraumatic; oropharynx clear with moist mucous membranes and no mucosal ulcerations; normal hard and soft palate Neck: Trachea midline; supple, no thyromegaly or lymphadenopathy Cardiac: RRR, no murmur, +S1/S2 Pulmonary: CTA bilaterally, no wheezes, rales or rhonchi, equal chest expansion Abdomen: currently soft, there is no rebound tenderness today. No hepatosplenomegaly MSK: ROM intact, no joint swelling noted Extremities: no BLE edema, nontender calf, no cyanosis or clubbing Skin: Normal temperature, turgor and texture; no rash, ulcers or subcutaneous nodules Neuro: moves all extremities, no focal deficits. Psych: Appropriate mood and behavior. A&Ox3 - Assessment and Plan (1) Sigmoid diverticulitis Current Visit: Yes Status: Acute Assessment and Plan: acute sigmoid diverticulitis with microperforation Acute care surgery is on board, recommend increasing diet to clear liquids at this time Currently managing with IV antibiotics, ciprofloxacin and Flagyl day 4, duration depends on clinical course continue oxycodone and Toradol for pain management we will continue to monitor along surgery, appreciate recommendations. (2) Depression Current Visit: Yes Status: Acute Assessment and Plan: depression, on Zoloft Patient also has significant home stressors which are causing concern for her We will continue her Zoloft at this time. (3) BASIL on CPAP Current Visit: No Status: Chronic Assessment and Plan: management per respiratory therapy DVT Prophylaxis: subcutaneous heparin - Time Spent with Patient Total time spent is greater than 50% in coordination of care (as documented) at patient's floor/unit and/or counseling patient: Internal Medicine: Result - Labs CBC & Chem 7: 07/14/19 05:16 07/14/19 05:16 <Leora Avina - Last Filed: 07/15/19 12:31> (2) Abdominal pain Qualifiers: Abdominal location: left lower quadrant Qualified Code(s): R10.32 - Left lower quadrant pain <Tomi Goode - Last Filed: 07/15/19 16:11> (2) Depression Qualifiers: Depression Type: major depressive disorder Active/Remission status: in remission of unspecified degree
--- NOTE | 2019-07-15 17:20 | AcuteCareSurgery Progress Note ---
Date of Encounter: 07/15/19 Time of Encounter: 08:00 - Assessment and Plan (1) Diverticulitis Current Visit: Yes Status: Acute Pt responding to IV abx. Diverticulitis is resolving. WBC normal. May start clear liquid diet today. If clears are tolerated then will advance diet, change to PO abx and recommend DC to home tomorrow. (2) Morbid obesity with BMI of 50.0-59.9, adult Current Visit: No Status: Chronic Subjective Patient reports: no new complaints, feels better, pain is less, flatus, bowel movement, afebrile Objective Vital Signs - Last 8 Hours Temp Pulse Resp BP Pulse Ox 07/15/19 15:58 98.0 F 77 16 142/82 99 07/15/19 11:43 98.1 F 77 16 115/75 97 Intake and Output 07/15/19 07/15/19 07/15/19 07:59 15:59 23:59 Intake Total 1300 / 1400 100 / 1400 Output Total 200 / 900 700 / 900 Balance 1100 / 500 -600 / 500 Intake: IV Fluids 1300 / 1400 100 / 1400 0.9 % Sodium Chloride 1,000 ML 1000 / 1000 @ 125 mls/hr IVC .Q8H UTE Rx#: [id number] Cipro Premix 400 MG/200 ML 400 200 / 200 mg In 200 ml @ 200 mls/hr IVPB Q12HR UTE Rx#:[id number] Flagyl Premix 500 MG/100 ML 500 100 / 200 100 / 200 mg In 100 ml @ 100 mls/hr IVPB Q8HR UTE Rx#:[id number] Oral 0 / 0 Output: Urine 200 / 900 700 / 900 Other: # Voids 1 Weight 165.2 kg Blood Glucose* 82 Patient Weight 07/15/19 23:59 Weight 165.2 kg - General physical appearance well developed, well nourished, no distress, no pain - Eyes PERRL, normal ocular movement - ENT no congestion, dry mucosa - Neck Neck exam: trachea midline, no venous distension - Respiratory normal respiratory effort, clear to auscultation - Cardiovascular Cardiovascular exam: Present: RRR. Absent: JVD - Abdomen Abdomen: Present: bowel sounds present, soft, non tender, distended (obese) - Neurologic CN 2-12 grossly intact, normal coordination - Musculoskeletal normal posture - Psychiatric oriented to time, oriented to person, oriented to place - Labs 07/14/19 05:16 07/14/19 05:16 Consult Discharge Plan - Plan Instructions: Diverticulitis (DC), Diverticulitis Diet (DC) Referrals: Ector Vera, CHANDELIER MAKER [Primary Care Provider] -
[2019-07-16] MEDS: *HR* Heparin 5,000 UNIT/ML VIAL SQ SCH (05:48)
[2019-07-16] MEDS: MetroNIDAZOLE 500 MG/100 ML 500 MG/100 ML BAG IVPB SCH (08:04)
[2019-07-16] MEDS: Pantoprazole 40 MG VIAL IVP SCH (08:04)
--- NOTE | 2019-07-16 10:10 | AcuteCareSurgery Progress Note ---
Date of Encounter: 07/16/19 Time of Encounter: 10:09 - Assessment and Plan (1) Sigmoid diverticulitis Current Visit: Yes Status: Acute I explained to the patient that I am pleased that she is doing well. I think it would be appropriate to change her diet to low fiber diet and discharge her home with oral antibiotics. We will make certain she has a follow-up to see us in 2- 3 weeks to talk about performing an eventual colonoscopy. Subjective Patient reports: no new complaints, feels better (States she last took pain medication 24 hours ago.) Objective Vital Signs - Last 8 Hours Temp Pulse Resp BP Pulse Ox 07/16/19 06:45 97.8 F 65 15 102/62 95 07/16/19 03:57 98.1 F 69 18 93/58 95 Intake and Output 07/15/19 07/16/19 07/16/19 23:59 07:59 15:59 Intake Total 300 / 1900 300 / 300 Output Total 0 / 0 Balance 300 / 1000 300 / 300 Intake: IV Fluids 300 / 1900 300 / 300 Cipro Premix 400 MG/200 ML 400 200 / 600 200 / 200 mg In 200 ml @ 200 mls/hr IVPB Q12HR UTE Rx#:[id number] Flagyl Premix 500 MG/100 ML 500 100 / 300 100 / 100 mg In 100 ml @ 100 mls/hr IVPB Q8HR UTE Rx#:[id number] Output: Urine 0 / 0 Other: Weight 166.1 kg Patient Weight 07/16/19 23:59 Weight 166.1 kg - General physical appearance well developed, well nourished, no distress - Abdomen Abdomen: Present: soft, non tender - Labs 07/14/19 05:16 07/14/19 05:16 Consult Discharge Plan - Plan Instructions: Diverticulitis (DC), Diverticulitis Diet (DC) Referrals: Ector Vera, FITTING ROOM INSPECTOR [Primary Care Provider] -
[2019-07-16 10:32] VITALS: BP 103/67
--- NOTE | 2019-07-16 13:22 | Discharge Summary ---
- NOTES TO OUTPATIENT PROVIDER Notes to Outpatient Provider: Pt admitted with acute diverticulitis. Improved and discharged home on PO abx. Orders not resulted at time of discharge: Pending orders 07/12/19 19:26 Blood Culture [Culture,Blood] [] Stat Date of Encounter: 07/16/19 Time of Encounter: 10:30 - Discharge Diagnosis (1) Perforation of sigmoid colon due to diverticulitis Priority: Primary Status: Acute (2) Abdominal pain Priority: Secondary Status: Acute Qualifiers: Abdominal location: left lower quadrant Qualified Code(s): R10.32 - Left lower quadrant pain (3) Nausea without vomiting Priority: Secondary Status: Acute (4) BASIL on CPAP Priority: Secondary Status: Chronic (5) Hypothyroidism Priority: Secondary Status: Chronic Qualifiers: Hypothyroidism type: acquired Qualified Code(s): E03.9 - Hypothyroidism, unspecified (6) Morbid obesity with BMI of 50.0-59.9, adult Priority: Secondary Status: Chronic Hospital course: Ms. Cardenas is a 39 year old female with hx of urinary lithiasis presented to ED with abdominal pain. She was found to have microperforation of sigmoid diverticulitis. Ms Cardenas presented to ED with abdominal pain. She was found to have diverticulitis with microperf. She was started on IV abx and seen by surgery. She had improvement in her symptoms and diet was started and increased. Today she is afebrile. Pain is controlled. She is tolerating diet. She will be discharged home on PO abx with outpatient follow up. Discharge discussed with: patient - Time Spent with Patient Total time spent providing and/or coordinating discharge services: 32min - Discharge Medications Prescriptions: New Ciprofloxacin [Cipro] 500 mg PO BID #21 tablet metroNIDAZOLE [Flagyl] 500 mg PO TID #31 tablet Simethicone [Gas-X] 80 mg PO TID PRN tab.chew PRN Reason: Dyspepsia Continued Fluticasone Propionate Nasal [Flonase] 2 spray NS DAILY PRN PRN Reason: Allergy Symptoms Montelukast [Singulair] 10 mg PO HS Allopurinol [Zyloprim 100 MG] 100 mg PO DAILY Sertraline [Zoloft] 25 mg PO DAILY Methocarbamol [Robaxin] 750 mg PO BID PRN PRN Reason: Muscle Pain Levothyroxine Sodium [Euthyrox] 150 mg PO DAILY Pantoprazole Sodium [Protonix] 40 mg PO DAILY Discontinued Minocycline HCl 100 mg PO BID PRN PRN Reason: Skin Irritation Home Medications: Fluticasone Propionate Nasal [Flonase] 2 spray NS DAILY PRN 12/14/15 [History] Allopurinol [Zyloprim 100 MG] 100 mg PO DAILY 06/21/19 [History] Montelukast [Singulair] 10 mg PO HS 06/21/19 [History] Sertraline [Zoloft] 25 mg PO DAILY 06/21/19 [History] Methocarbamol [Robaxin] 750 mg PO BID PRN 07/12/19 [History] Levothyroxine Sodium [Euthyrox] 150 mg PO DAILY 07/13/19 [History] Pantoprazole Sodium [Protonix] 40 mg PO DAILY 07/13/19 [History] Ciprofloxacin [Cipro] 500 mg PO BID #21 tablet 07/16/19 [Rx] Simethicone [Gas-X] 80 mg PO TID PRN tab.chew 07/16/19 [Rx] metroNIDAZOLE [Flagyl] 500 mg PO TID #31 tablet 07/16/19 [Rx] Allergies/Adverse Reactions: Allergy/AdvReac Type Severity Reaction Status Date / Time cephalexin [From Keflex] Allergy Hives Verified 07/13/19 10:50 Sulfa (Sulfonamide Allergy Hives Verified 07/13/19 10:50 Antibiotics) Date of admission: 07/12/19 19:30 Primary care physician: Ector Vera CNP Consults: 07/12/19 19:02 Consult to Surgery [CONS] Stat Consulting Provider: Acute Care Surgery Reason for Consult: Complicated diverticulitis Call Completed: Yes 07/12/19 21:34 Consult to Nutrition [CONS] Routine Comment: Consulting Provider: NUTRITION Reason for Dietary Consult: MST Score 07/15/19 12:36 Consult to Invasive Line Access Team [CONS] Routine Reason for Consult: Patient stuck 9 times with ultrasound guided IV and her IVs continue to go bad. Line Type: EPIV Discharging clinician: Wili Amezquita Anticipated date of discharge: 07/16/19 - Constitutional Vitals: Temp Pulse Resp BP Pulse Ox 98.2 F 73 16 103/67 98 07/16/19 10:27 07/16/19 10:27 07/16/19 10:27 07/16/19 10:27 07/16/19 10:27 General appearance: Present: cooperative, A&O X 3, pleasant, answers questions appropriately Exam: See below - Head Head exam: Present: normocephalic - Eye Eye exam: Present: EOMI, conjuntiva pink - ENT ENT exam: Present: mucous membranes moist - Neck Neck exam general surgery: Present: normal inspection - Respiratory Respiratory exam: Present: CTAB. Absent: rales, rhonchi, wheezes - Cardiovascular Cardiovascular exam: Present: RRR. Absent: tachycardia - GI/Abdominal GI/Abdominal exam: Present: soft, tenderness - Extremities Exam Extremities exam: Present: warm. Absent: tenderness - Neurological Exam Neurological exam: Present: alert, oriented X3 - Skin Skin exam: Present: dry, warm - Patient Status Disposition: Home, Self-Care Condition: Good Functional capacity at discharge: independent ambulation Overall status at discharge: patient is progressing back to baseline - Discharge Instructions Instructions: Diverticulitis (DC), Diverticulitis Diet (DC) Follow Up With: Chepe Go MD [Partnered Physician] - 08/04/19 9:00 am Ector Vera CNP [Primary Care Provider] - 07/21/19 1:15 pm - Diet and Activity Activity: resume usual activities as tolerated Diet: other (Low residue/low fiber diet)
== END 2019-07-16 15:00 | disposition home or self-care (01) ==
LOC: EMEROOARM 14:14 → 3ANU 14:14 → SUATTDRO 19:30 → 3ANU 20:20
PROVIDERS: ADMIT Internal Medicine; ATTEND Internal Medicine